=== PATIENT | female | born 1990 | race African-American/Black ===

== ENCOUNTER 2017-12-26 05:49 | Emergency (ER) | payer OTHER | END 2017-12-26 06:23 | disposition home or self-care (01) | LOC: ER 05:49 | DX: J06.9 Acute upper respiratory infection, unspecified (principal); R09.1 Pleurisy; Z88.1 Allergy status to other antibiotic agents | CPT/HCPCS: 99282 ==

== ENCOUNTER 2019-01-18 18:00 | Emergency (ER) | payer OTHER ==
[~2019-01-18] VITALS: Ht 157.5 cm; Wt 83.9 kg
[~2019-01-18 18:00] MED LIST: IBUP-1007 PO
[2019-01-18 18:05] VITALS: BP 157/98
[2019-01-18] MEDS ORDERED: IPRATRPIUM/ALBUTEROL 0.5/2.5MG 3 ML NEBU. NEB ONE (18:30)
[2019-01-18] MEDS ORDERED: PRED50TA PO (19:02)
[2019-01-18] MEDS ORDERED: PROM118S5 PO (19:02)
[2019-01-18] MEDS ORDERED: ALBU2.5V8 INH (19:02)
[2019-01-18] MEDS ORDERED: AZIT250T PO (19:02)
--- NOTE | 2019-01-18 19:03 | PHYS DOC ---
Past Medical History Past Medical History: Anemia (SHANELL GONSALEZ APRN) Past Surgical History: Tubal ligation, Other Additional Past Surgical Histo: d&c (SHANELL GONSALEZ APRN) Alcohol Use: None Drug Use: None (SHANELL GONSALEZ APRN) Adult General Chief Complaint Chief Complaint: COUGH HPI HPI Patient is a 29 year old female who presents with a severe cough �1 week. The patient also has a sore throat. She states that she thinks her throat is primarily sore due to the coughing. She denies a history of asthma. She states that she has felt short of breath. She denies fever or body aches. (SHANELL GONSALEZ APRN) Review of Systems Review of Systems Constitutional: Denies fever or chills [] Eyes: Denies change in visual acuity, redness, or eye pain [] HENT: See history of present illness Respiratory: See history of present illness Cardiovascular: No additional information not addressed in HPI [] GI: Denies abdominal pain, nausea, vomiting, bloody stools or diarrhea [] : Denies dysuria or hematuria [] Musculoskeletal: Denies back pain or joint pain [] Integument: Denies rash or skin lesions [] Neurologic: Denies headache, focal weakness or sensory changes [] Endocrine: Denies polyuria or polydipsia [] All other systems were reviewed and found to be within normal limits, except as documented in this note. (SHANELL GONSALEZ APRN) Current Medications Current Medications Current Medications Medications (Trade) Dose Ordered Sig/Elver Start Time Stop Time Status Last Admin Dose Admin Albuterol/ Ipratropium (Duoneb) 3 ml 1X ONCE 01/18/19 18:30 01/18/19 18:31 DC 01/18/19 18:35 3 ML (ODNINA BROWN MD) Allergies Allergies Allergies Coded Allergies Type Severity Reaction Last Updated Verified ciprofloxacin Allergy Severe Anaphylaxis 07/23/16 Yes (ONDINA BROWN MD) Physical Exam Physical Exam Constitutional: Well developed, well nourished, no acute distress, non-toxic appearance. [] HENT: Normocephalic, atraumatic, bilateral tympanic membranes normal, oropharynx moist, pharyngeal erythema with no oral exudates, nose normal. [] Eyes: PERRLA, EOMI, conjunctiva normal, no discharge. [] Neck: Normal range of motion, no tenderness, supple, no stridor. [] Cardiovascular:Heart rate regular rhythm, no murmur [] Lungs & Thorax: Bilateral breath sounds are decreased with rhonchi noted to the bases Abdomen: Bowel sounds normal, soft, no tenderness, no masses, no pulsatile masses. [] Skin: Warm, dry, no erythema, no rash. [] Back: No tenderness, no CVA tenderness. [] Extremities: No tenderness, no cyanosis, no clubbing, ROM intact, no edema. [] Neurologic: Alert and oriented X 3, normal motor function, normal sensory function, no focal deficits noted. [] Psychologic: Affect normal, judgement normal, mood normal. [] (SHANELL GONSALEZ APRN) Current Patient Data Vital Signs Vital Signs Date Time Temp Pulse Resp B/P (MAP) Pulse Ox O2 Delivery O2 Flow Rate FiO2 01/18/19 18:37 98 Room Air 01/18/19 18:05 99.0 85 18 157/98 (117) 99.0 (ONDINA BROWN MD) EKG EKG [] (SHANELL GONSALEZ APRN) Radiology/Procedures Radiology/Procedures [] (SHANELL GONSALEZ APRN) Course & Med Decision Making Course & Med Decision Making Pertinent Labs and Imaging studies reviewed. (See chart for details) []The patient was given a DuoNeb treatment in the emergency department with improvement to her lung sounds. (SHANELL GONSALEZ APRN) Course & Med Decision Making Represent Staff Physician Addendum: I was working in the ER during the course of this patient's visit. I was available for consultation as needed, but I was not directly involved in the care of this patient. (ONDINA RBOWN MD) Dragon Disclaimer Dragon Disclaimer This electronic medical record was generated, in whole or in part, using a voice recognition dictation system. (SHANELL GONSALEZ APRN) Departure Departure Impression: Primary Impression: Bronchitis Disposition: 01 HOME, SELF-CARE Condition: STABLE Referrals: NO PCP (PCP) Patient Instructions: Bronchitis Additional Instructions: Take the medications as directed. Do not drive or operate heavy machinery while taking the cough syrup. Increase fluids and rest. Follow-up with your primary care provider in 4 days if not improving or return to the emergency department if worsening. Scripts Albuterol Sulfate (Proair Hfa) 8.5 Gm Hfa.aer.ad 1 PUFF INH PRN Q6HRS PRN for SHORTNESS OF BREATH, #1 INHALER Prov: SHANELL GONSALEZ APRN 01/18/19 Prednisone (PREDNISONE) 50 Mg Tablet 1 TAB PO DAILY for bronchitis, #5 TAB Prov: SHANELL GONSALEZ APRN 01/18/19 Promethazine Hcl/Codeine (PROMETHAZINE-CODEINE SYRUP) 118 Ml Syrup 5 ML PO Q4-6HRS for cough, #120 ML Prov: SHANELL GONSALEZ APRN 01/18/19 Azithromycin (ZITHROMAX) 250 Mg Tablet 1 PKG PO UD for bronchitis, #1 PKG Prov: SHANELL GONSALEZ APRN 01/18/19 SHANELL GONSALEZ APRN Jan 18, 2019 19:03 ONDINA BROWN MD Jan 19, 2019 01:13
== END 2019-01-18 19:00 | disposition home or self-care (01) ==
LOC: ER 18:00
DX: J40 Bronchitis, not specified as acute or chronic (principal); Z86.2 Personal history of diseases of the blood and blood-forming organs and certain disorders involving the immune mechanism; Z88.1 Allergy status to other antibiotic agents
CPT/HCPCS: 94640; 99283; J7620

== ENCOUNTER 2019-07-23 20:59 | Emergency (ER) | payer MEDICAID, OTHER ==
[~2019-07-23] VITALS: Ht 162.6 cm; Wt 74.8 kg
[~2019-07-23 20:59] MED LIST changes: +ALBU2.5V8 INH; +AZIT250T PO; +PRED50TA PO; +PROM118S5 PO
[2019-07-23 21:33] VITALS: BP 141/81
[2019-07-23] MEDS ORDERED: AMOX500T PO (22:04)
[2019-07-23] MEDS ORDERED: METH4TAB2 PO (22:04)
--- NOTE | 2019-07-23 22:04 | PHYS DOC ---
Past Medical History Past Medical History: Anemia (AYDEE LOYA APRN) Past Surgical History: Tubal ligation, Other Additional Past Surgical Histo: d&c (AYDEE LOYA APRN) Alcohol Use: None Drug Use: None (AYDEE LOYA APRN) Adult General Chief Complaint Chief Complaint: SORE THROAT HPI HPI Patient is a 29 year old female who presents with fever, sore throat �2 days. Patient's fever and the ER is 102.7. Patient states she has not taken any medications for the fever pain. Patient states throat is sore but doesn't really hurt and she cannot give a number for her discomfort at this time. Patient denies nausea, vomiting, shortness of breath, cough, sneezing, nasal congestion, ear pain, chest pain, diarrhea. (AYDEE LOYA APRN) Review of Systems Review of Systems Constitutional: fever or chills [] HENT: nasal congestion or sore throat [] Respiratory: Denies cough or shortness of breath [] Cardiovascular: No additional information not addressed in HPI [] GI: Denies abdominal pain, nausea, vomiting, bloody stools or diarrhea [] : Denies dysuria or hematuria [] Neurologic: Denies headache, focal weakness or sensory changes [] All other systems were reviewed and found to be within normal limits, except as documented in this note. (AYDEE LOYA APRN) Current Medications Current Medications Current Medications Medications (Trade) Dose Ordered Sig/Elver Start Time Stop Time Status Last Admin Dose Admin Acetaminophen (Tylenol) 1,000 mg 1X ONCE 07/23/19 22:30 07/23/19 22:31 DC 07/23/19 22:26 1,000 MG (ONDINA BROWN MD) Allergies Allergies Allergies Coded Allergies Type Severity Reaction Last Updated Verified ciprofloxacin Allergy Severe Anaphylaxis 07/23/16 Yes (ONDINA BROWN MD) Physical Exam Physical Exam Constitutional: Well developed, well nourished, no acute distress, non-toxic appearance. [] HENT: Normocephalic, atraumatic, bilateral external ears normal, oropharynx moist, no oral exudates, nose normal.Throat red, 1+ edema with exudates[] Neck: Normal range of motion, no tenderness, supple, no stridor. [] Cardiovascular:Heart rate regular rhythm, no murmur [] Lungs & Thorax: Bilateral breath sounds clear to auscultation [] Abdomen: Bowel sounds normal, soft, no tenderness, no masses, no pulsatile masses. [] Skin: Warm, dry, no erythema, no rash. [] Neurologic: Alert and oriented X 3, normal motor function, normal sensory function, no focal deficits noted. [] Psychologic: Affect normal, judgement normal, mood normal. [] (AYDEE LOYA APRN) Current Patient Data Vital Signs Vital Signs Date Time Temp Pulse Resp B/P (MAP) Pulse Ox O2 Delivery O2 Flow Rate FiO2 07/23/19 21:33 102.7 97 20 141/81 (101) 100 Room Air 102.7 (ONDINA BROWN MD) EKG EKG [] (AYDEE LOYA APRN) Radiology/Procedures Radiology/Procedures [] (AYDEE LOYA APRN) Course & Med Decision Making Course & Med Decision Making Patient is a 29 year old female who presents with fever, sore throat �2 days. P atient's fever and the ER is 102.7. Patient states she has not taken any medications for the fever pain. Patient states throat is sore but doesn't really hurt and she cannot give a number for her discomfort at this time. Patient denies nausea, vomiting, shortness of breath, cough, sneezing, nasal congestion, ear pain, chest pain, diarrhea. Alert and oriented. Skin is pink warm and dry. Ambulatory with a steady gait. PERRLA. Lungs are clear to auscultation all lobes. Throat is reddened and tonsils are 1+ swollen with white patches. Bilateral ear tympanic is pearly white. Rapid strep is negative sent for culture. Patient speaks in full clear sentences. Mucous membranes moist. Patient is eating and drinking appropriately. Patient is given Tylenol in the ED. I will treat her for strep especially since she has a fever and I do see white patches on her tonsils. Patient is stable and in no distress. Patient follow up with her primary care and drink plenty of fluids. (AYDEE LOYA APRN) Course & Med Decision Making Staff Physician Addendum: I was working in the ER during the course of this patient's visit. I was available for consultation as needed, but I was not directly involved in the care of this patient. (ONDINA BROWN MD) Dragon Disclaimer Dragon Disclaimer This electronic medical record was generated, in whole or in part, using a voice recognition dictation system. (AYDEE LOYA APRN) Departure Departure Impression: Primary Impression: Sore throat Additional Impression: Fever Disposition: 01 HOME, SELF-CARE Condition: STABLE Referrals: NO PCP (PCP) Patient Instructions: Strep Throat Additional Instructions: Drink plenty of fluids. Take Tylenol or ibuprofen for fever or pain. Right gargling salt water. Take medication as prescribed. Follow up with primary care provider. Scripts Methylprednisolone (MEDROL) 4 Mg Tab.ds.pk 1 PKG PO UD, #1 PKG Prov: AYDEE LOYA APRN 07/23/19 Amoxicillin (AMOXICILLIN) 500 Mg Tablet 1 TAB PO BID, #20 TAB Prov: AYDEE LOYA APRN 07/23/19 Problem Qualifiers Additional Impression: Fever Fever type: unspecified Qualified Codes: R50.9 - Fever, unspecified AYDEE LOYA APRN Jul 23, 2019 22:04 ONDINA BROWN MD Jul 24, 2019 05:36
[2019-07-23] MEDS ORDERED: ACETAMINOPHEN 500 MG TABLET PO ONE (22:30)
== END 2019-07-23 22:30 | disposition home or self-care (01) ==
LOC: ER 20:59
DX: J02.9 Acute pharyngitis, unspecified (principal); Z98.51 Tubal ligation status; Z88.1 Allergy status to other antibiotic agents
CPT/HCPCS: 87070; 87880; 99283

== ENCOUNTER 2019-08-12 12:34 | Emergency (ER) | payer MEDICAID ==
[~2019-08-12] VITALS: Ht 157.5 cm; Wt 81.6 kg
[~2019-08-12 12:34] MED LIST changes: +AMOX500T PO; +METH4TAB2 PO
[2019-08-12 12:48] VITALS: BP 141/85
--- NOTE | 2019-08-12 13:36 | PHYS DOC ---
Past Medical History Past Medical History: Anemia Additional Past Medical Histor: MULTIPLE BLOOD TRANSFUSIONS PER PT. Past Surgical History: Tubal ligation, Other Additional Past Surgical Histo: d&c Additional Information: 2/day - black and milds Alcohol Use: Occasionally Drug Use: None Adult General Chief Complaint Chief Complaint: OTHER COMPLAINTS HPI HPI Patient is a 29 year old female that presents to the ER stating that she has missed her period. She states her last menstrual period was June 16. She states that she's had a tubal ligation is not on any control. Taken numerous home tests which were all negative. Denies any other complaints. Review of Systems Review of Systems Constitutional: Denies fever or chills [] Eyes: Denies change in visual acuity, redness, or eye pain [] HENT: Denies nasal congestion or sore throat [] Respiratory: Denies cough or shortness of breath [] Cardiovascular: No additional information not addressed in HPI [] GI: Denies abdominal pain, nausea, vomiting, bloody stools or diarrhea [] : Denies dysuria or hematuria [] Musculoskeletal: Denies back pain or joint pain [] Integument: Denies rash or skin lesions [] Neurologic: Denies headache, focal weakness or sensory changes [] Endocrine: Denies polyuria or polydipsia [] Complete systems were reviewed and found to be within normal limits, except as documented in this note. Allergies Allergies Allergies Coded Allergies Type Severity Reaction Last Updated Verified ciprofloxacin Allergy Severe Anaphylaxis 07/23/16 Yes Physical Exam Physical Exam Constitutional: Well developed, well nourished, no acute distress, non-toxic appearance. [] HENT: Normocephalic, atraumatic, bilateral external ears normal, oropharynx moist, no oral exudates, nose normal. [] Eyes: PERRLA, EOMI, conjunctiva normal, no discharge. [] Neck: Normal range of motion, no tenderness, supple, no stridor. [] Skin: Warm, dry, no erythema, no rash. [] Back: No tenderness, no CVA tenderness. [] Extremities: No tenderness, no cyanosis, no clubbing, ROM intact, no edema. [] Neurologic: Alert and oriented X 3, normal motor function, normal sensory function, no focal deficits noted. [] Psychologic: Affect normal, judgement normal, mood normal. [] Current Patient Data Vital Signs Vital Signs Date Time Temp Pulse Resp B/P (MAP) Pulse Ox O2 Delivery O2 Flow Rate FiO2 08/12/19 12:48 98.5 69 19 141/85 (103) 100 Room Air 98.5 EKG EKG [] Radiology/Procedures Radiology/Procedures [] Course & Med Decision Making Course & Med Decision Making Pertinent Labs and Imaging studies reviewed. (See chart for details) Discussed with patient that if her home test is negative she is unlikely to be . Will repeat test and refer to OB. test is negative. Will d/c home. Patient had medical screening exam performed and is not having signs of medical emergency at this time. Dragon Disclaimer [employer] Disclaimer This electronic medical record was generated, in whole or in part, using a voice recognition dictation system. Departure Departure Impression: Primary Impression: Encounter for medical screening examination Disposition: HOME, SELF-CARE Condition: STABLE Referrals: NO PCP (PCP) FRANCO BERMUDEZ Jr, MD Patient Instructions: Medical Screening Exam Additional Instructions: Thank you for visiting [facility]. We appreciate you trusting us with your care. If any additional problems come up don't hesitate to return to visit us. Please follow up with your primary care provider so they can plan additional care if needed and know about the problem that you had. If symptoms worsen come back to the Emergency Department. Any concerning symptoms that start such as chest pain, shortness of air, weakness or numbness on one side of the body, running high fevers or any other concerning symptoms return to the ER. SALINA JUDGE APRN Aug 12, 2019 13:36
== END 2019-08-12 13:44 | disposition home or self-care (01) ==
LOC: ER 12:34
DX: Z32.02 Encounter for pregnancy test, result negative (principal); Z98.51 Tubal ligation status; Z88.1 Allergy status to other antibiotic agents
CPT/HCPCS: 81025; 99282

== ENCOUNTER 2019-08-23 17:55 | Emergency (ER) | payer MEDICAID ==
[~2019-08-23] VITALS: Ht 157.5 cm; Wt 81.6 kg
[2019-08-23 18:16] VITALS: BP 137/90
[2019-08-23 18:23] LABS: BILIRUBIN,URINE NEGATIVE (NEG); CLARITY,URINE TURBID; NITRITE,URINE NEGATIVE (NEG); PROTEIN,URINE >=300 mg/dL (NEG-TRACE)
--- NOTE | 2019-08-23 18:28 | PHYS DOC ---
Past Medical History Past Medical History: Anemia, Kidney Stone Additional Past Medical Histor: MULTIPLE BLOOD TRANSFUSIONS PER PT. Past Surgical History: Tubal ligation, Other Additional Past Surgical Histo: d&c Alcohol Use: Occasionally Drug Use: None Adult General Chief Complaint Chief Complaint: PAIN ON URINATION [facility] HPI Patient is a 29 year old [female] who presents with [urinary frequency, urgency. States she had been passing some kidney stones at home for the past 2 days, reports she has noticed some increased urinary frequency since that time, reports she feels like she is unable to completely empty her bladder, when she urinates she should feel like she has a full bladder. Does report she has had bladder infections in the past, this feels very similar. Denies any vaginal bleeding, vaginal discharge, concerns for STI. Does report she has noticed some blood in her urine, which he believes is from the infection and as well as from her recent kidney stones. Reports she believes she has passed all the kidney stones she had. Denies fever, denies new back pain, reports she has chronic lower back pain, this is no different today than she normally is. She has tried some ibuprofen, which has helped a little bit] Review of Systems Review of Systems Constitutional: Denies fever or chills [] Eyes: Denies change in visual acuity, redness, or eye pain [] HENT: Denies nasal congestion or sore throat [] Respiratory: Denies cough or shortness of breath [] Cardiovascular: No additional information not addressed in HPI [] GI: Denies abdominal pain, nausea, vomiting, bloody stools or diarrhea [] : Reports dysuria, hematuria, urinary frequency, bladder emptying, burning urination [] Musculoskeletal: Denies back pain different from what she normally has each day or joint pain [] Integument: Denies rash or skin lesions [] Neurologic: Denies headache, focal weakness or sensory changes [] Endocrine: Denies polyuria or polydipsia [] All other systems were reviewed and found to be within normal limits, except as documented in this note. Allergies Allergies Allergies Coded Allergies Type Severity Reaction Last Updated Verified ciprofloxacin Allergy Severe Anaphylaxis 07/23/16 Yes Physical Exam Physical Exam Constitutional: Well developed, well nourished, no acute distress, non-toxic appearance. [] Cardiovascular:Heart rate regular rhythm, no murmur [] Lungs & Thorax: Bilateral breath sounds clear to auscultation [] Abdomen: Bowel sounds normal, soft, no tenderness, no masses, no pulsatile masses. [] Skin: Warm, dry, no erythema, no rash. [] Back: No tenderness, no CVA tenderness. [] Neurologic: Alert and oriented X 3, normal motor function, normal sensory function, no focal deficits noted. [] Psychologic: Affect normal, judgement normal, mood normal. [] Current Patient Data Vital Signs Vital Signs Date Time Temp Pulse Resp B/P (MAP) Pulse Ox O2 Delivery O2 Flow Rate FiO2 08/23/19 18:16 98.8 68 18 137/90 (106) 100 Room Air 98.8 Lab Values Laboratory Tests Test 08/23/19 18:07 Urine Collection Type Unknown Urine Color Yellow Urine Clarity Turbid Urine pH 6.0 Urine Specific [place] 1.020 Urine Protein >=300 mg/dL (NEG-TRACE) Urine Glucose (UA) Negative mg/dL (NEG) Urine Ketones (Stick) Trace mg/dL (NEG) Urine Blood Large (NEG) Urine Nitrite Negative (NEG) Urine Bilirubin Negative (NEG) Urine Urobilinogen Dipstick 1.0 mg/dL (0.2 mg/dL) Urine Leukocyte Esterase Large (NEG) Urine RBC Tntc /HPF (0-2) Urine WBC Tntc /HPF (0-4) Urine Squamous Epithelial Cells Mod /LPF Urine Bacteria Many /HPF (0-FEW) Urine Mucus Marked /LPF EKG EKG [] Radiology/Procedures Radiology/Procedures [] Course & Med Decision Making Course & Med Decision Making Pertinent Labs and Imaging studies reviewed. (See chart for details) [Discussed lab findings with patient, discussed use of antibiotics for UTI.. Patient agreeable with plan, with no further questions or concerns] Dragon Disclaimer Dragon Disclaimer This electronic medical record was generated, in whole or in part, using a voice recognition dictation system. Departure Departure Impression: Primary Impression: Urinary tract infection Disposition: 01 HOME, SELF-CARE Condition: GOOD Referrals: NO PCP (PCP) Patient Instructions: Urinary Tract Infection Additional Instructions: As we discussed, take the antibiotic as prescribed. It will be cultured and if it is found to be resistant again, they will call you similar to last time. Make sure you're drinking plenty of water. Follow up with your primary care provider as needed. You may take Tylenol or ibuprofen for discomfort. Scripts Cephalexin (CEPHALEXIN) 500 Mg Capsule 1 CAP PO BID for 10 Days, #20 CAP Prov: MIGUEL VÁZQUEZ APRN 08/23/19 Problem Qualifiers Primary Impression: Urinary tract infection Urinary tract infection type: acute cystitis Hematuria presence: with hematuria Qualified Codes: N30.01 - Acute cystitis with hematuria MIGUEL VÁZQUEZ APRN Aug 23, 2019 18:28
[2019-08-23 18:31] LABS: BACTERIA,URINE MANY /HPF (0-FEW); COLOR,URINE YELLOW; RBC,URINE TNTC /HPF (0-2); SQUAMOUS EPITHELIAL CELL,UR MOD /LPF; WBC,URINE TNTC /HPF (0-4)
[2019-08-23 18:40] LABS: U PREG PATIENT NEGATIVE (NEG)
[2019-08-23] MEDS ORDERED: CEPH500C PO (18:46)
== END 2019-08-23 18:59 | disposition home or self-care (01) ==
LOC: ER 17:55
DX: N30.01 Acute cystitis with hematuria (principal); Z87.442 Personal history of urinary calculi; Z98.51 Tubal ligation status; Z88.1 Allergy status to other antibiotic agents
CPT/HCPCS: 81001; 81025; 87086; 99284

== ENCOUNTER 2019-09-21 13:55 | Inpatient (IN) | payer MEDICAID ==
[~2019-09-21] VITALS: Ht 157.5 cm; Wt 76.8 kg
[~2019-09-21 13:55] MED LIST changes: +CEPH500C PO
[2019-09-21 15:59] LABS: BASO # 0.1 x10^3/uL (0.0-0.2); BASO % 1 % (0-3); EOS # 0.2 x10^3/uL (0.0-0.7); EOS % 2 % (0-3); HEMATOCRIT 26.1 % (36.0-47.0); HEMOGLOBIN 7.6 g/dL (12.0-15.5); LYMPH # 2.1 x10^3/uL (1.0-4.8); LYMPH % 22 % (24-48); MEAN CORPUSCULAR HEMOGLOBIN 18 pg (25-35); MEAN CORPUSCULAR HGB CONC 29 g/dL (31-37); MEAN CORPUSCULAR VOLUME 63 fL (79-100); MONO # 0.5 x10^3/uL (0.0-1.1); MONO % 5 % (0-9); NEUT # 6.7 x10^3/uL (1.8-7.7); NEUT % 70 % (31-73); PLATELET COUNT 339 x10^3/uL (140-400); RED BLOOD COUNT 4.18 x10^6/uL (3.50-5.40); RED CELL DISTRIBUTION WIDTH 17.4 % (11.5-14.5); WHITE BLOOD COUNT 9.5 x10^3/uL (4.0-11.0)
[2019-09-21 16:01] LABS: BILIRUBIN,URINE NEGATIVE (NEG); CLARITY,URINE CLEAR; COLOR,URINE YELLOW; NITRITE,URINE NEGATIVE (NEG); PH,URINE 5.5; PROTEIN,URINE NEGATIVE (NEG-TRACE); UROBILINOGEN,URINE 0.2 mg/dL (0.2 mg/dL)
[2019-09-21 16:04] LABS: BACTERIA,URINE FEW /HPF (0-FEW); RBC,URINE 0 /HPF (0-2); SQUAMOUS EPITHELIAL CELL,UR MOD /LPF
[2019-09-21 16:07] LABS: BARBITURATES NEG (NEG); BENZODIAZEPINES NEG (NEG); CANNABINOIDS POS (NEG); COCAINE NEG (NEG); METHADONE NEG (NEG); OPIATES NEG (NEG); PHENCYCLIDINE NEG (NEG)
--- NOTE | 2019-09-21 16:11 | PHYS DOC ---
Past Medical History Past Medical History: Anemia, Kidney Stone Additional Past Medical Histor: MULTIPLE BLOOD TRANSFUSIONS PER PT. (JENNIFER HADDAD APRN) Past Surgical History: Tubal ligation, Other Additional Past Surgical Histo: d&c (JENNIFER HADDAD APRN) Smoking: Less than 1pk/day Alcohol Use: Occasionally Drug Use: None (JENNIFER HADDAD APRN) Attending Signature I have participated in the care of this patient and I have reviewed and agree with all pertinent clinical information above including history, exam, and recommendations. (ENRIQUE JOSEPH MD) Adult General Chief Complaint Chief Complaint: SYNCOPE HPI HPI Patient is a 29 year old AA female, accompanied by her 2 children, who presents to the emergency Department today with complaints of a syncopal episode yesterday. Patient states that she needs to have her hemoglobin level checked. She states she was sitting at the table in her home yesterday afternoon when she passed out for approximately 10-12 hours. Patient denies hitting her head, nausea, vomiting, vision changes, or dizziness prior to passing out. She does not remember passing out. Patient reports a history of anemia and states she has been taking iron since she was a minor but it does not help and they have not figured out exactly what type of anemia she has yet. She reports her last menstrual cycle was on September [id number]. She denies any increased menstrual flow, she actually describes the bleeding during this cycle as being light. She currently denies any numbness, tingling, weakness, chest pain, shortness breath, palpitations, headache, vision changes, nausea, vomiting, abdominal pain, dysuria, hematuria, body aches, or rash. Patient states she did have diarrhea 4 days ago, she denies any diarrhea since then and states there was not any blood in her diarrhea. She does report increased urinary frequency recently with non specific low back pain. Currently, she denies any pain. She states that with position changes for the last 2 days she has felt very lightheaded. She denies any sensation of room spinning or dizziness. All other ROS is neg unless otherwise noted in HPI. (JENNIFER HADDAD APRN) Review of Systems Review of Systems See Above (JENNIFER HADDAD APRN) Current Medications Current Medications Current Medications Medications (Trade) Dose Ordered Sig/Elver Start Time Stop Time Status Last Admin Dose Admin Potassium Chloride (Klor-Con) 40 meq 1X ONCE 09/21/19 16:45 09/21/19 16:46 DC 09/21/19 17:02 40 MEQ (ENRIQUE JOSEPH MD) Allergies Allergies Allergies Coded Allergies Type Severity Reaction Last Updated Verified ciprofloxacin Allergy Severe Anaphylaxis 07/23/16 Yes (ENRIQUE JOSEPH MD) Physical Exam Physical Exam See Above Constitutional: Well developed, well nourished, no acute distress, non-toxic appearance. [] HENT: Normocephalic, atraumatic, bilateral external ears normal, oropharynx moist, no oral exudates, nose normal. [] Eyes: PERRLA, EOMI, conjunctiva pale, no discharge. [] Neck: Normal range of motion, no stridor. [] Cardiovascular:Heart rate regular rhythm, no murmur [] Lungs & Thorax: Bilateral breath sounds clear to auscultation [] Abdomen: Bowel sounds normal, soft, no tenderness, no masses, no pulsatile masses. [] Skin: Warm, dry, no erythema, no rash; pale mucous membranes [] Back: No tenderness, no CVA tenderness. [] Extremities: No cyanosis, no clubbing, ROM intact, no edema. [] Neurologic: Alert and oriented X 3, normal motor function, normal sensory function, no focal deficits noted. [] Psychologic: Affect normal, judgement normal, mood normal. [] (JENNIFER HADDAD APRN) Current Patient Data Vital Signs Vital Signs Date Time Temp Pulse Resp B/P (MAP) Pulse Ox O2 Delivery O2 Flow Rate FiO2 09/21/19 16:20 72 12 124/85 (98) 100 Room Air 09/21/19 15:06 98.7 98.7 (ENRIQUE JOSEPH MD) Lab Values Laboratory Tests Test 09/21/19 15:16 09/21/19 15:24 White Blood Count 9.5 x10^3/uL (4.0-11.0) Red Blood Count 4.18 x10^6/uL (3.50-5.40) Hemoglobin 7.6 g/dL (12.0-15.5) L Hematocrit 26.1 % (36.0-47.0) L Mean Corpuscular Volume 63 fL (79-100) L Mean Corpuscular Hemoglobin 18 pg (25-35) L Mean Corpuscular Hemoglobin Concent 29 g/dL (31-37) L Red Cell Distribution Width 17.4 % (11.5-14.5) H Platelet Count 339 x10^3/uL (140-400) Neutrophils (%) (Auto) 70 % (31-73) Lymphocytes (%) (Auto) 22 % (24-48) L Monocytes (%) (Auto) 5 % (0-9) Eosinophils (%) (Auto) 2 % (0-3) Basophils (%) (Auto) 1 % (0-3) Neutrophils # (Auto) 6.7 x10^3/uL (1.8-7.7) Lymphocytes # (Auto) 2.1 x10^3/uL (1.0-4.8) Monocytes # (Auto) 0.5 x10^3/uL (0.0-1.1) Eosinophils # (Auto) 0.2 x10^3/uL (0.0-0.7) Basophils # (Auto) 0.1 x10^3/uL (0.0-0.2) Platelet Estimate Adequate (ADEQUATE) Polychromasia Slight Hypochromasia Marked Anisocytosis Slight Microcytosis Marked Sodium Level 142 mmol/L (136-145) Potassium Level 3.3 mmol/L (3.5-5.1) L Chloride Level 105 mmol/L (98-107) Carbon Dioxide Level 27 mmol/L (21-32) Anion Gap 10 (6-14) Blood Urea Nitrogen 6 mg/dL (7-20) L Creatinine 0.7 mg/dL (0.6-1.0) Estimated GFR (Cockcroft-Gault) 121.5 BUN/Creatinine Ratio 9 (6-20) Glucose Level 77 mg/dL (70-99) Calcium Level 8.8 mg/dL (8.5-10.1) Magnesium Level 1.9 mg/dL (1.8-2.4) Iron Level 9 ug/dL (50-170) L Total Iron Binding Capacity 458 ug/dL (250-450) H Iron Saturation 2 % (15-34) L Total Bilirubin 0.4 mg/dL (0.2-1.0) Aspartate Amino Transferase (AST) 12 U/L (15-37) L Alanine Aminotransferase (ALT) 12 U/L (14-59) L Alkaline Phosphatase 47 U/L (46-116) Creatine Kinase 75 U/L (26-192) Creatine Kinase MB (Mass) < 0.5 ng/mL (0.0-3.6) Creatine Kinase MB Relative Index % (0-4) Troponin I Quantitative < 0.017 ng/mL (0.000-0.055) Total Protein 8.0 g/dL (6.4-8.2) Albumin 3.7 g/dL (3.4-5.0) Albumin/Globulin Ratio 0.9 (1.0-1.7) L Urine Collection Type Unknown Urine Color Yellow Urine Clarity Clear Urine pH 5.5 Urine Specific [employer] 1.020 Urine Protein Negative mg/dL (NEG-TRACE) Urine Glucose (UA) Negative mg/dL (NEG) Urine Ketones (Stick) Negative mg/dL (NEG) Urine Blood Negative (NEG) Urine Nitrite Negative (NEG) Urine Bilirubin Negative (NEG) Urine Urobilinogen Dipstick 0.2 mg/dL (0.2 mg/dL) Urine Leukocyte Esterase Negative (NEG) Urine RBC 0 /HPF (0-2) Urine WBC 1-4 /HPF (0-4) Urine Squamous Epithelial Cells Mod /LPF Urine Bacteria Few /HPF (0-FEW) Urine Mucus Mod /LPF Urine Test Negative (NEG) Urine Opiates Screen Neg (NEG) Urine Methadone Screen Neg (NEG) Urine Barbiturates Neg (NEG) Urine Phencyclidine Screen Neg (NEG) Urine Amphetamine/Methamphetamine Neg (NEG) Urine Benzodiazepines Screen Neg (NEG) Urine Cocaine Screen Neg (NEG) Urine Cannabinoids Screen Pos (NEG) Urine Ethyl Alcohol Neg (NEG) Laboratory Tests 09/21/19 15:16 Laboratory Tests 09/21/19 15:16 (ENRIQUE JOSEPH MD) Lab Values Laboratory Tests Test 09/21/19 15:16 09/21/19 15:24 White Blood Count 9.5 x10^3/uL (4.0-11.0) Red Blood Count 4.18 x10^6/uL (3.50-5.40) Hemoglobin 7.6 g/dL (12.0-15.5) L Hematocrit 26.1 % (36.0-47.0) L Mean Corpuscular Volume 63 fL (79-100) L Mean Corpuscular Hemoglobin 18 pg (25-35) L Mean Corpuscular Hemoglobin Concent 29 g/dL (31-37) L Red Cell Distribution Width 17.4 % (11.5-14.5) H Platelet Count 339 x10^3/uL (140-400) Neutrophils (%) (Auto) 70 % (31-73) Lymphocytes (%) (Auto) 22 % (24-48) L Monocytes (%) (Auto) 5 % (0-9) Eosinophils (%) (Auto) 2 % (0-3) Basophils (%) (Auto) 1 % (0-3) Neutrophils # (Auto) 6.7 x10^3/uL (1.8-7.7) Lymphocytes # (Auto) 2.1 x10^3/uL (1.0-4.8) Monocytes # (Auto) 0.5 x10^3/uL (0.0-1.1) Eosinophils # (Auto) 0.2 x10^3/uL (0.0-0.7) Basophils # (Auto) 0.1 x10^3/uL (0.0-0.2) Platelet Estimate Pending Sodium Level 142 mmol/L (136-145) Potassium Level 3.3 mmol/L (3.5-5.1) L Chloride Level 105 mmol/L (98-107) Carbon Dioxide Level 27 mmol/L (21-32) Anion Gap 10 (6-14) Blood Urea Nitrogen 6 mg/dL (7-20) L Creatinine 0.7 mg/dL (0.6-1.0) Estimated GFR (Cockcroft-Gault) 121.5 BUN/Creatinine Ratio 9 (6-20) Glucose Level 77 mg/dL (70-99) Calcium Level 8.8 mg/dL (8.5-10.1) Magnesium Level 1.9 mg/dL (1.8-2.4) Total Bilirubin 0.4 mg/dL (0.2-1.0) Aspartate Amino Transferase (AST) 12 U/L (15-37) L Alanine Aminotransferase (ALT) 12 U/L (14-59) L Alkaline Phosphatase 47 U/L (46-116) Creatine Kinase 75 U/L (26-192) Creatine Kinase MB (Mass) < 0.5 ng/mL (0.0-3.6) Creatine Kinase MB Relative Index % (0-4) Troponin I Quantitative < 0.017 ng/mL (0.000-0.055) Total Protein 8.0 g/dL (6.4-8.2) Albumin 3.7 g/dL (3.4-5.0) Albumin/Globulin Ratio 0.9 (1.0-1.7) L Urine Collection Type Unknown Urine Color Yellow Urine Clarity Clear Urine pH 5.5 Urine Specific [employer] 1.020 Urine Protein Negative mg/dL (NEG-TRACE) Urine Glucose (UA) Negative mg/dL (NEG) Urine Ketones (Stick) Negative mg/dL (NEG) Urine Blood Negative (NEG) Urine Nitrite Negative (NEG) Urine Bilirubin Negative (NEG) Urine Urobilinogen Dipstick 0.2 mg/dL (0.2 mg/dL) Urine Leukocyte Esterase Negative (NEG) Urine RBC 0 /HPF (0-2) Urine WBC 1-4 /HPF (0-4) Urine Squamous Epithelial Cells Mod /LPF Urine Bacteria Few /HPF (0-FEW) Urine Mucus Mod /LPF Urine Test Negative (NEG) Urine Opiates Screen Neg (NEG) Urine Methadone Screen Neg (NEG) Urine Barbiturates Neg (NEG) Urine Phencyclidine Screen Neg (NEG) Urine Amphetamine/Methamphetamine Neg (NEG) Urine Benzodiazepines Screen Neg (NEG) Urine Cocaine Screen Neg (NEG) Urine Cannabinoids Screen Pos (NEG) Urine Ethyl Alcohol Neg (NEG) Laboratory Tests 09/21/19 15:16 Laboratory Tests 09/21/19 15:16 (JENNIFER HADDAD APRN) EKG EKG 1610- SR rate 60 NO STEMI read by Dr. Joseph[] (JENNIFER HADDAD APRN) Radiology/Procedures Radiology/Procedures [] (JENNIFER HADDAD APRN) Course & Med Decision Making Course & Med Decision Making Pertinent Labs and Imaging studies reviewed. (See chart for details) DX: Anemia, hypokalemia, syncope CBC: Hgb 7.6, Hct 26.1; CMP: K 3.3; UA unremarkable; UDS positive for marijuana EKG no acute findings. 1710- Spoke with Dr. Mckenzie who is the admitting physician, and care was assumed following discussion of patient. Patient's vital signs stable. Patient remains afebrile, appears nontoxic, respirations even and unlabored. Patient will be admitted to the med/surg floor. Patient's case and plan of care also discussed with Dr. Joseph (JENNIFER HADDAD APRN) Dilip Disclaimer Dragon Disclaimer This electronic medical record was generated, in whole or in part, using a voice recognition dictation system. (JENNIFER HADDAD APRN) Departure Departure Impression: Primary Impression: Anemia Additional Impressions: Hypokalemia Syncope Disposition: ADMITTED INPATIENT Admitting Physician: YOLANDA Hope) (JENNIFER HADDAD APRN) Condition: STABLE Referrals: NO PCP (PCP) Problem Qualifiers Primary Impression: Anemia Anemia type: unspecified type Qualified Codes: D64.9 - Anemia, unspecified Additional Impressions: Syncope Syncope type: unspecified Qualified Codes: R55 - Syncope and collapse JENNIFER HADDAD APRN Sep 21, 2019 16:11 ENRIQUE JOSEPH MD Sep 24, 2019 06:16
[2019-09-21 16:12] LABS: AMPHETAMINE/METHAMPHETAMINE NEG (NEG)
[2019-09-21 16:16] LABS: U PREG PATIENT NEGATIVE (NEG)
[2019-09-21 16:23] LABS: CALCIUM 8.8 mg/dL (8.5-10.1); CREATININE 0.7 mg/dL (0.6-1.0); GFR 121.5; POTASSIUM 3.3 mmol/L (3.5-5.1)
[2019-09-21 16:28] LABS: ALBUMIN 3.7 g/dL (3.4-5.0); ALBUMIN/GLOBULIN RATIO 0.9 (1.0-1.7); MAGNESIUM 1.9 mg/dL (1.8-2.4); TOTAL BILIRUBIN 0.4 mg/dL (0.2-1.0)
[2019-09-21 16:33] LABS: CREATINE KINASE 75 U/L (26-192)
[2019-09-21] MEDS ORDERED: POTASSIUM CHLORIDE 20 MEQ TABLET.ER. PO ONE (16:45)
--- NOTE | 2019-09-21 17:44 | PDOC1 ---
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 Pt has had blood transfusions in past. Pt never did ff up with heme onc, She also has menorrhagia, 7 days, heavy, big tampons plus pads, but the last 2 mos has been ok. NOT having her period now, never was placed on OCP to control periods. Syncope, no sz, no aura, VS good. Hgb 7.,6 with MCv 67. Normal platelets, Mildly low K 3,3, got PO 40 kcl x 1 at ER Past Medical History Heme/Onc: Anemia NOS Past Surgical History Past Surgical History: Other (OB deliveries - lots of kids in room (toddler ages)) Family History Family History: No Significant Social History Smoke: No ALCOHOL: none Drugs: None Current Problem List Problem List Problems Medical Problems: (1) Anemia Status: Acute (2) Hypokalemia Status: Acute (3) Syncope Status: Acute Current Medications Current Medications Current Medications Potassium Chloride (Klor-Con) 40 meq 1X ONCE PO Last administered on 09/21/19at 17:02; Start 09/21/19 at 16:45; Stop 09/21/19 at 16:46; Status DC Active Scripts Active Cephalexin 500 Mg Capsule 1 Cap PO BID 10 Days Medrol (Methylprednisolone) 4 Mg Tab.ds.pk 1 Pkg PO UD Amoxicillin 500 Mg Tablet 1 Tab PO BID Proair Hfa (Albuterol Sulfate) 8.5 Gm Hfa.aer.ad 1 Puff INH PRN Q6HRS PRN Prednisone 50 Mg Tablet 1 Tab PO DAILY Promethazine-Codeine Syrup (Promethazine Hcl/Codeine) 118 Ml Syrup 5 Ml PO Q4- 6HRS Zithromax (Azithromycin) 250 Mg Tablet 1 Pkg PO UD Ibuprofen 600 Mg Tablet 600 Mg PO PRN Q6HRS PRN Allergies Allergies: Coded Allergies: ciprofloxacin (Verified Allergy, Severe, Anaphylaxis, 07/23/16) ROS Review of System as per HPI, all else 14 pt neg Physical Exam General: No acute distress HEENT: Atraumatic, PERRLA, EOMI, Other ([pale palpebral conjunctivae) Lungs: Clear to auscultation, Normal air movement Heart: S1S2, RRR, no thrills, no rubs, no gallops, no murmurs Cardiovascular: S1, S2 Breasts: Normal, Rt breast nml w/o mass, Lt breast nml w/o mass, Nipples normal Abdomen: Normal bowel sounds, Soft, No tenderness, No hepatosplenomegaly, No masses Rectal Exam: not examined PELVIC: Nml ext genitalia Extremities: No clubbing, No cyanosis, No edema, Normal pulses, No tenderness/swelling Skin: No rashes, No breakdown, No significant lesion Neuro: Normal gait, Normal speech, Strength at 5/5 X4 ext, Normal tone, Sensation intact, Cranial nerves 3-12 NL, Reflexes 2+ Psych/Mental Status: Mental status NL, Mood NL Vitals Vitals Vital Signs Date Time Temp Pulse Resp B/P (MAP) Pulse Ox O2 Delivery O2 Flow Rate FiO2 09/21/19 15:06 98.7 63 12 123/77 (92) 96 Room Air 98.7 Labs Labs Laboratory Tests Test 09/21/19 15:16 09/21/19 15:24 White Blood Count 9.5 x10^3/uL (4.0-11.0) Red Blood Count 4.18 x10^6/uL (3.50-5.40) Hemoglobin 7.6 g/dL (12.0-15.5) Hematocrit 26.1 % (36.0-47.0) Mean Corpuscular Volume 63 fL (79-100) Mean Corpuscular Hemoglobin 18 pg (25-35) Mean Corpuscular Hemoglobin Concent 29 g/dL (31-37) Red Cell Distribution Width 17.4 % (11.5-14.5) Platelet Count 339 x10^3/uL (140-400) Neutrophils (%) (Auto) 70 % (31-73) Lymphocytes (%) (Auto) 22 % (24-48) Monocytes (%) (Auto) 5 % (0-9) Eosinophils (%) (Auto) 2 % (0-3) Basophils (%) (Auto) 1 % (0-3) Neutrophils # (Auto) 6.7 x10^3/uL (1.8-7.7) Lymphocytes # (Auto) 2.1 x10^3/uL (1.0-4.8) Monocytes # (Auto) 0.5 x10^3/uL (0.0-1.1) Eosinophils # (Auto) 0.2 x10^3/uL (0.0-0.7) Basophils # (Auto) 0.1 x10^3/uL (0.0-0.2) Sodium Level 142 mmol/L (136-145) Potassium Level 3.3 mmol/L (3.5-5.1) Chloride Level 105 mmol/L (98-107) Carbon Dioxide Level 27 mmol/L (21-32) Anion Gap 10 (6-14) Blood Urea Nitrogen 6 mg/dL (7-20) Creatinine 0.7 mg/dL (0.6-1.0) Estimated GFR (Cockcroft-Gault) 121.5 BUN/Creatinine Ratio 9 (6-20) Glucose Level 77 mg/dL (70-99) Calcium Level 8.8 mg/dL (8.5-10.1) Magnesium Level 1.9 mg/dL (1.8-2.4) Total Bilirubin 0.4 mg/dL (0.2-1.0) Aspartate Amino Transf (AST/SGOT) 12 U/L (15-37) Alanine Aminotransferase (ALT/SGPT) 12 U/L (14-59) Alkaline Phosphatase 47 U/L (46-116) Creatine Kinase 75 U/L (26-192) Creatine Kinase MB (Mass) < 0.5 ng/mL (0.0-3.6) Creatine Kinase MB Relative Index % (0-4) Troponin I Quantitative < 0.017 ng/mL (0.000-0.055) Total Protein 8.0 g/dL (6.4-8.2) Albumin 3.7 g/dL (3.4-5.0) Albumin/Globulin Ratio 0.9 (1.0-1.7) Urine Collection Type Unknown Urine Color Yellow Urine Clarity Clear Urine pH 5.5 Urine Specific [place] 1.020 Urine Protein Negative mg/dL (NEG-TRACE) Urine Glucose (UA) Negative mg/dL (NEG) Urine Ketones (Stick) Negative mg/dL (NEG) Urine Blood Negative (NEG) Urine Nitrite Negative (NEG) Urine Bilirubin Negative (NEG) Urine Urobilinogen Dipstick 0.2 mg/dL (0.2 mg/dL) Urine Leukocyte Esterase Negative (NEG) Urine RBC 0 /HPF (0-2) Urine WBC 1-4 /HPF (0-4) Urine Squamous Epithelial Cells Mod /LPF Urine Bacteria Few /HPF (0-FEW) Urine Mucus Mod /LPF Urine Test Negative (NEG) Urine Opiates Screen Neg (NEG) Urine Methadone Screen Neg (NEG) Urine Barbiturates Neg (NEG) Urine Phencyclidine Screen Neg (NEG) Urine Amphetamine/Methamphetamine Neg (NEG) Urine Benzodiazepines Screen Neg (NEG) Urine Cocaine Screen Neg (NEG) Urine Cannabinoids Screen Pos (NEG) Urine Ethyl Alcohol Neg (NEG) Laboratory Tests Test 09/21/19 15:16 09/21/19 15:24 White Blood Count 9.5 x10^3/uL (4.0-11.0) Red Blood Count 4.18 x10^6/uL (3.50-5.40) Hemoglobin 7.6 g/dL (12.0-15.5) Hematocrit 26.1 % (36.0-47.0) Mean Corpuscular Volume 63 fL (79-100) Mean Corpuscular Hemoglobin 18 pg (25-35) Mean Corpuscular Hemoglobin Concent 29 g/dL (31-37) Red Cell Distribution Width 17.4 % (11.5-14.5) Platelet Count 339 x10^3/uL (140-400) Neutrophils (%) (Auto) 70 % (31-73) Lymphocytes (%) (Auto) 22 % (24-48) Monocytes (%) (Auto) 5 % (0-9) Eosinophils (%) (Auto) 2 % (0-3) Basophils (%) (Auto) 1 % (0-3) Neutrophils # (Auto) 6.7 x10^3/uL (1.8-7.7) Lymphocytes # (Auto) 2.1 x10^3/uL (1.0-4.8) Monocytes # (Auto) 0.5 x10^3/uL (0.0-1.1) Eosinophils # (Auto) 0.2 x10^3/uL (0.0-0.7) Basophils # (Auto) 0.1 x10^3/uL (0.0-0.2) Sodium Level 142 mmol/L (136-145) Potassium Level 3.3 mmol/L (3.5-5.1) Chloride Level 105 mmol/L (98-107) Carbon Dioxide Level 27 mmol/L (21-32) Anion Gap 10 (6-14) Blood Urea Nitrogen 6 mg/dL (7-20) Creatinine 0.7 mg/dL (0.6-1.0) Estimated GFR (Cockcroft-Gault) 121.5 BUN/Creatinine Ratio 9 (6-20) Glucose Level 77 mg/dL (70-99) Calcium Level 8.8 mg/dL (8.5-10.1) Magnesium Level 1.9 mg/dL (1.8-2.4) Total Bilirubin 0.4 mg/dL (0.2-1.0) Aspartate Amino Transf (AST/SGOT) 12 U/L (15-37) Alanine Aminotransferase (ALT/SGPT) 12 U/L (14-59) Alkaline Phosphatase 47 U/L (46-116) Creatine Kinase 75 U/L (26-192) Creatine Kinase MB (Mass) < 0.5 ng/mL (0.0-3.6) Creatine Kinase MB Relative Index % (0-4) Troponin I Quantitative < 0.017 ng/mL (0.000-0.055) Total Protein 8.0 g/dL (6.4-8.2) Albumin 3.7 g/dL (3.4-5.0) Albumin/Globulin Ratio 0.9 (1.0-1.7) Urine Collection Type Unknown Urine Color Yellow Urine Clarity Clear Urine pH 5.5 Urine Specific [place] 1.020 Urine Protein Negative mg/dL (NEG-TRACE) Urine Glucose (UA) Negative mg/dL (NEG) Urine Ketones (Stick) Negative mg/dL (NEG) Urine Blood Negative (NEG) Urine Nitrite Negative (NEG) Urine Bilirubin Negative (NEG) Urine Urobilinogen Dipstick 0.2 mg/dL (0.2 mg/dL) Urine Leukocyte Esterase Negative (NEG) Urine RBC 0 /HPF (0-2) Urine WBC 1-4 /HPF (0-4) Urine Squamous Epithelial Cells Mod /LPF Urine Bacteria Few /HPF (0-FEW) Urine Mucus Mod /LPF Urine Test Negative (NEG) Urine Opiates Screen Neg (NEG) Urine Methadone Screen Neg (NEG) Urine Barbiturates Neg (NEG) Urine Phencyclidine Screen Neg (NEG) Urine Amphetamine/Methamphetamine Neg (NEG) Urine Benzodiazepines Screen Neg (NEG) Urine Cocaine Screen Neg (NEG) Urine Cannabinoids Screen Pos (NEG) Urine Ethyl Alcohol Neg (NEG) VTE Prophylaxis Ordered VTE Prophylaxis Devices: Contraindicated VTE Pharmacological Prophylaxi: Contraindicated Assessment/Plan Assessment/Plan Syncope Symptomatic anemia - hgb 7 Microcytic anemia- MCv 60s - hx of recalcitrant to iron supplements per her acct Obesity MEnometrorrhagia hx - not currently Hypokalemia, mild PLAN: Check hemoglobin electrophoresis, i did not order sickle cell screen since she realys a clear story of heme onc in [place] telling her she was tested for it and it was not sickle cell I threw in iron panel just because Transfuse even though hgb is 7 plus bec of symptoms Check echo just for completion, make sure not HOCM etc causing syncope HH tmr K tmr HEme onc consult in AM seen at ER FULL CODE NO need for provera etc as she is not having heavy periods for the last 2 mos DU CAVAZOS MD Sep 21, 2019 17:44
[2019-09-21] MEDS ORDERED: ACETAMINOPHEN/CODEINE 300/30MG TABLET. PO PRN (17:45)
[2019-09-21] MEDS ORDERED: ZOLPIDEM 5 MG TABLET. PO PRN (17:45)
[2019-09-21] MEDS ORDERED: CALCIUM CARBONATE 500 MG TAB.CHEW PO PRN (17:45)
[2019-09-21 18:02] LABS: ANISOCYTOSIS SLIGHT; HYPOCHROMIA MARKED; MICROCYTOSIS MARKED; PLT ESTIMATE ADEQUATE (ADEQUATE); POLYCHROMASIA SLIGHT
[2019-09-21 19:15] VITALS: BP 112/81
--- NOTE | 2019-09-21 19:30 | NUR ---
The patient, GUSTAVO WHITMAN, 29 y/o, F admitted by DU CAVAZOS MD, was given written information regarding hospital policies, unit procedures and contact persons. Valuables were checked and left with in the room.
[2019-09-21 20:56] VITALS: BP 121/79
[2019-09-21 21:11] VITALS: BP 121/76
[2019-09-21 22:11] VITALS: BP 119/70
[2019-09-21 23:00] VITALS: BP 116/74
[2019-09-21 23:11] VITALS: BP 116/74
[2019-09-22] VITALS (7 sets, daily range): BP systolic 113–128; BP diastolic 73–82
[2019-09-22 05:18] LABS: HEMOGLOBIN 8.1 g/dL (12.0-15.5)
--- NOTE | 2019-09-22 06:43 | EKG ---
[facility] [address] [place] [address] Test Date: 2019-09-21 Test Time: 16:10:14 Pat Name: GUSTAVO WHITMAN Department: Room: 569 1 Gender: F [employer]: : 1990 Requested By: JENNIFER HADDAD Order Number: [id number] Reading MD: Landen Sr MD Measurements Intervals [place] Rate: 60 P: 59 W[place]: 156 QRS: 58 QRSD: 82 T: 34 QT: 398 QTc: 402 Interpretive Statements SINUS RHYTHM NON-SPECIFIC ST/T CHANGES Electronically Signed On 10-06-2019 8:45:06 KNOCKOUT MAN by Landen Sr MD
[2019-09-22] MEDS: ONDANSETRON PF 4 MG/2 ML VIAL. IVP PRN ×2 (07:30→17:36)
--- NOTE | 2019-09-22 07:33 | NUR ---
Pt c/o nausea this morning. States she woke up to a sharp pain shooting through her spine. State she has had 6 blood transfusions total in the last 11 years. States she has had delayed reactions after every transfusion. At 16, post delivery of a baby, she lost feeling to her legs and was unable to walk. That lasted approx. 2 days. At 20, post delivery of a baby, she had a similar experience that lasted approx. week. At 21, post delivery of a baby, she broke out in hives, throat swelling, facial edema. She also had infusion therapy and had the same reaction. The 4th transfusion was admitted for her history of post transfusion reactions. The 5th transfusion, she had facial swelling, throat swelling post infusion. Her 6th transfusion was 09/21 at [facility]. States she is afraid she is starting to have another reaction due to nausea and back pain. States she felt hot and cold through out the night. Zofran was administered, will relay info to provider. Will continue to monitor.
[2019-09-22] MEDS: FERROUS SULFATE 325 MG TABLET. PO SCH (08:00)
[2019-09-22] MEDS: LIDOCAINE (700MG/PATCH) PATCH. TD SCH (09:15)
[2019-09-22] MEDS ORDERED: KETOROLAC 15 MG/ML VIAL. IVP ONE (09:15)
[2019-09-22] MEDS ORDERED: IV NORMAL SALINE 1000ML BAG 1,000 ML IV ONE (09:15)
--- NOTE | 2019-09-22 09:17 | PDOC ---
PROGRESS NOTES Chief Complaint Chief Complaint Syncope Symptomatic anemia - hgb 7 Microcytic anemia- MCv 60s - hx of recalcitrant to iron supplements per her acct Obesity MEnometrorrhagia hx - not currently Hypokalemia, mild NAusea BAck pain, acute History of Present Illness History of Present Illness got 1 pRBC yesterday and hgb 8 plus from, 7. plus She was symptomatic with claimed syncope No menorrhagia currently SOme back pain today and nausea Poor liquid intake, urine is concentrated PLan: Lidoderm patch now to back Toradol 15 mg only now for back pain NS 1 L x 1 I encouraged inc OFI Add retic ct - added by heme onc already HEmoglobin electrophoresis in the works tmr echo S(yncope) Vitals Vitals Vital Signs Date Time Temp Pulse Resp B/P (MAP) Pulse Ox O2 Delivery O2 Flow Rate FiO2 09/22/19 08:43 20 Room Air 09/22/19 07:00 98.4 65 119/82 (94) 100 98.4 Physical Exam General: Alert, Oriented X3, Cooperative, No acute distress Heart: Regular rate, Normal S1, Normal S2 Lungs: Clear Abdomen: Normal bowel sounds, Soft, No tenderness, No hepatosplenomegaly, No masses Extremities: No clubbing, No cyanosis, No edema, Normal pulses, No tenderness/swelling Skin: No rashes, No breakdown, No significant lesion Labs LABS Laboratory Tests Test 09/21/19 15:16 09/21/19 15:24 09/22/19 03:30 White Blood Count 9.5 x10^3/uL (4.0-11.0) Red Blood Count 4.18 x10^6/uL (3.50-5.40) Hemoglobin 7.6 g/dL (12.0-15.5) 8.1 g/dL (12.0-15.5) Hematocrit 26.1 % (36.0-47.0) 27.0 % (36.0-47.0) Mean Corpuscular Volume 63 fL (79-100) Mean Corpuscular Hemoglobin 18 pg (25-35) Mean Corpuscular Hemoglobin Concent 29 g/dL (31-37) 30 g/dL (31-37) Red Cell Distribution Width 17.4 % (11.5-14.5) Platelet Count 339 x10^3/uL (140-400) Neutrophils (%) (Auto) 70 % (31-73) Lymphocytes (%) (Auto) 22 % (24-48) Monocytes (%) (Auto) 5 % (0-9) Eosinophils (%) (Auto) 2 % (0-3) Basophils (%) (Auto) 1 % (0-3) Neutrophils # (Auto) 6.7 x10^3/uL (1.8-7.7) Lymphocytes # (Auto) 2.1 x10^3/uL (1.0-4.8) Monocytes # (Auto) 0.5 x10^3/uL (0.0-1.1) Eosinophils # (Auto) 0.2 x10^3/uL (0.0-0.7) Basophils # (Auto) 0.1 x10^3/uL (0.0-0.2) Platelet Estimate Adequate (ADEQUATE) Polychromasia Slight Hypochromasia Marked Anisocytosis Slight Microcytosis Marked Sodium Level 142 mmol/L (136-145) Potassium Level 3.3 mmol/L (3.5-5.1) 3.6 mmol/L (3.5-5.1) Chloride Level 105 mmol/L (98-107) Carbon Dioxide Level 27 mmol/L (21-32) Anion Gap 10 (6-14) Blood Urea Nitrogen 6 mg/dL (7-20) Creatinine 0.7 mg/dL (0.6-1.0) Estimated GFR (Cockcroft-Gault) 121.5 BUN/Creatinine Ratio 9 (6-20) Glucose Level 77 mg/dL (70-99) Calcium Level 8.8 mg/dL (8.5-10.1) Magnesium Level 1.9 mg/dL (1.8-2.4) Iron Level 9 ug/dL (50-170) Total Iron Binding Capacity 458 ug/dL (250-450) Iron Saturation 2 % (15-34) Total Bilirubin 0.4 mg/dL (0.2-1.0) Aspartate Amino Transf (AST/SGOT) 12 U/L (15-37) Alanine Aminotransferase (ALT/SGPT) 12 U/L (14-59) Alkaline Phosphatase 47 U/L (46-116) Creatine Kinase 75 U/L (26-192) Creatine Kinase MB (Mass) < 0.5 ng/mL (0.0-3.6) Creatine Kinase MB Relative Index % (0-4) Troponin I Quantitative < 0.017 ng/mL (0.000-0.055) Total Protein 8.0 g/dL (6.4-8.2) Albumin 3.7 g/dL (3.4-5.0) Albumin/Globulin Ratio 0.9 (1.0-1.7) Urine Collection Type Unknown Urine Color Yellow Urine Clarity Clear Urine pH 5.5 Urine Specific [place] 1.020 Urine Protein Negative mg/dL (NEG-TRACE) Urine Glucose (UA) Negative mg/dL (NEG) Urine Ketones (Stick) Negative mg/dL (NEG) Urine Blood Negative (NEG) Urine Nitrite Negative (NEG) Urine Bilirubin Negative (NEG) Urine Urobilinogen Dipstick 0.2 mg/dL (0.2 mg/dL) Urine Leukocyte Esterase Negative (NEG) Urine RBC 0 /HPF (0-2) Urine WBC 1-4 /HPF (0-4) Urine Squamous Epithelial Cells Mod /LPF Urine Bacteria Few /HPF (0-FEW) Urine Mucus Mod /LPF Urine Test Negative (NEG) Urine Opiates Screen Neg (NEG) Urine Methadone Screen Neg (NEG) Urine Barbiturates Neg (NEG) Urine Phencyclidine Screen Neg (NEG) Urine Amphetamine/Methamphetamine Neg (NEG) Urine Benzodiazepines Screen Neg (NEG) Urine Cocaine Screen Neg (NEG) Urine Cannabinoids Screen Pos (NEG) Urine Ethyl Alcohol Neg (NEG) Review of Systems Review of Systems nausea, back pain today, all else 14 pt neg Assessment and Plan Assessmemt and Plan Problems Medical Problems: (1) Anemia Status: Acute (2) Hypokalemia Status: Acute (3) Syncope Status: Acute Comment Review of Relevant I have reviewed the following items mario (where applicable) has been applied. Labs Laboratory Tests Test 09/21/19 15:16 09/21/19 15:24 09/22/19 03:30 White Blood Count 9.5 x10^3/uL (4.0-11.0) Red Blood Count 4.18 x10^6/uL (3.50-5.40) Hemoglobin 7.6 g/dL (12.0-15.5) 8.1 g/dL (12.0-15.5) Hematocrit 26.1 % (36.0-47.0) 27.0 % (36.0-47.0) Mean Corpuscular Volume 63 fL (79-100) Mean Corpuscular Hemoglobin 18 pg (25-35) Mean Corpuscular Hemoglobin Concent 29 g/dL (31-37) 30 g/dL (31-37) Red Cell Distribution Width 17.4 % (11.5-14.5) Platelet Count 339 x10^3/uL (140-400) Neutrophils (%) (Auto) 70 % (31-73) Lymphocytes (%) (Auto) 22 % (24-48) Monocytes (%) (Auto) 5 % (0-9) Eosinophils (%) (Auto) 2 % (0-3) Basophils (%) (Auto) 1 % (0-3) Neutrophils # (Auto) 6.7 x10^3/uL (1.8-7.7) Lymphocytes # (Auto) 2.1 x10^3/uL (1.0-4.8) Monocytes # (Auto) 0.5 x10^3/uL (0.0-1.1) Eosinophils # (Auto) 0.2 x10^3/uL (0.0-0.7) Basophils # (Auto) 0.1 x10^3/uL (0.0-0.2) Platelet Estimate Adequate (ADEQUATE) Polychromasia Slight Hypochromasia Marked Anisocytosis Slight Microcytosis Marked Sodium Level 142 mmol/L (136-145) Potassium Level 3.3 mmol/L (3.5-5.1) 3.6 mmol/L (3.5-5.1) Chloride Level 105 mmol/L (98-107) Carbon Dioxide Level 27 mmol/L (21-32) Anion Gap 10 (6-14) Blood Urea Nitrogen 6 mg/dL (7-20) Creatinine 0.7 mg/dL (0.6-1.0) Estimated GFR (Cockcroft-Gault) 121.5 BUN/Creatinine Ratio 9 (6-20) Glucose Level 77 mg/dL (70-99) Calcium Level 8.8 mg/dL (8.5-10.1) Magnesium Level 1.9 mg/dL (1.8-2.4) Iron Level 9 ug/dL (50-170) Total Iron Binding Capacity 458 ug/dL (250-450) Iron Saturation 2 % (15-34) Total Bilirubin 0.4 mg/dL (0.2-1.0) Aspartate Amino Transf (AST/SGOT) 12 U/L (15-37) Alanine Aminotransferase (ALT/SGPT) 12 U/L (14-59) Alkaline Phosphatase 47 U/L (46-116) Creatine Kinase 75 U/L (26-192) Creatine Kinase MB (Mass) < 0.5 ng/mL (0.0-3.6) Creatine Kinase MB Relative Index % (0-4) Troponin I Quantitative < 0.017 ng/mL (0.000-0.055) Total Protein 8.0 g/dL (6.4-8.2) Albumin 3.7 g/dL (3.4-5.0) Albumin/Globulin Ratio 0.9 (1.0-1.7) Urine Collection Type Unknown Urine Color Yellow Urine Clarity Clear Urine pH 5.5 Urine Specific [place] 1.020 Urine Protein Negative mg/dL (NEG-TRACE) Urine Glucose (UA) Negative mg/dL (NEG) Urine Ketones (Stick) Negative mg/dL (NEG) Urine Blood Negative (NEG) Urine Nitrite Negative (NEG) Urine Bilirubin Negative (NEG) Urine Urobilinogen Dipstick 0.2 mg/dL (0.2 mg/dL) Urine Leukocyte Esterase Negative (NEG) Urine RBC 0 /HPF (0-2) Urine WBC 1-4 /HPF (0-4) Urine Squamous Epithelial Cells Mod /LPF Urine Bacteria Few /HPF (0-FEW) Urine Mucus Mod /LPF Urine Test Negative (NEG) Urine Opiates Screen Neg (NEG) Urine Methadone Screen Neg (NEG) Urine Barbiturates Neg (NEG) Urine Phencyclidine Screen Neg (NEG) Urine Amphetamine/Methamphetamine Neg (NEG) Urine Benzodiazepines Screen Neg (NEG) Urine Cocaine Screen Neg (NEG) Urine Cannabinoids Screen Pos (NEG) Urine Ethyl Alcohol Neg (NEG) Laboratory Tests Test 09/21/19 15:16 09/21/19 15:24 09/22/19 03:30 White Blood Count 9.5 x10^3/uL (4.0-11.0) Red Blood Count 4.18 x10^6/uL (3.50-5.40) Hemoglobin 7.6 g/dL (12.0-15.5) 8.1 g/dL (12.0-15.5) Hematocrit 26.1 % (36.0-47.0) 27.0 % (36.0-47.0) Mean Corpuscular Volume 63 fL (79-100) Mean Corpuscular Hemoglobin 18 pg (25-35) Mean Corpuscular Hemoglobin Concent 29 g/dL (31-37) 30 g/dL (31-37) Red Cell Distribution Width 17.4 % (11.5-14.5) Platelet Count 339 x10^3/uL (140-400) Neutrophils (%) (Auto) 70 % (31-73) Lymphocytes (%) (Auto) 22 % (24-48) Monocytes (%) (Auto) 5 % (0-9) Eosinophils (%) (Auto) 2 % (0-3) Basophils (%) (Auto) 1 % (0-3) Neutrophils # (Auto) 6.7 x10^3/uL (1.8-7.7) Lymphocytes # (Auto) 2.1 x10^3/uL (1.0-4.8) Monocytes # (Auto) 0.5 x10^3/uL (0.0-1.1) Eosinophils # (Auto) 0.2 x10^3/uL (0.0-0.7) Basophils # (Auto) 0.1 x10^3/uL (0.0-0.2) Platelet Estimate Adequate (ADEQUATE) Polychromasia Slight Hypochromasia Marked Anisocytosis Slight Microcytosis Marked Sodium Level 142 mmol/L (136-145) Potassium Level 3.3 mmol/L (3.5-5.1) 3.6 mmol/L (3.5-5.1) Chloride Level 105 mmol/L (98-107) Carbon Dioxide Level 27 mmol/L (21-32) Anion Gap 10 (6-14) Blood Urea Nitrogen 6 mg/dL (7-20) Creatinine 0.7 mg/dL (0.6-1.0) Estimated GFR (Cockcroft-Gault) 121.5 BUN/Creatinine Ratio 9 (6-20) Glucose Level 77 mg/dL (70-99) Calcium Level 8.8 mg/dL (8.5-10.1) Magnesium Level 1.9 mg/dL (1.8-2.4) Iron Level 9 ug/dL (50-170) Total Iron Binding Capacity 458 ug/dL (250-450) Iron Saturation 2 % (15-34) Total Bilirubin 0.4 mg/dL (0.2-1.0) Aspartate Amino Transf (AST/SGOT) 12 U/L (15-37) Alanine Aminotransferase (ALT/SGPT) 12 U/L (14-59) Alkaline Phosphatase 47 U/L (46-116) Creatine Kinase 75 U/L (26-192) Creatine Kinase MB (Mass) < 0.5 ng/mL (0.0-3.6) Creatine Kinase MB Relative Index % (0-4) Troponin I Quantitative < 0.017 ng/mL (0.000-0.055) Total Protein 8.0 g/dL (6.4-8.2) Albumin 3.7 g/dL (3.4-5.0) Albumin/Globulin Ratio 0.9 (1.0-1.7) Urine Collection Type Unknown Urine Color Yellow Urine Clarity Clear Urine pH 5.5 Urine Specific [place] 1.020 Urine Protein Negative mg/dL (NEG-TRACE) Urine Glucose (UA) Negative mg/dL (NEG) Urine Ketones (Stick) Negative mg/dL (NEG) Urine Blood Negative (NEG) Urine Nitrite Negative (NEG) Urine Bilirubin Negative (NEG) Urine Urobilinogen Dipstick 0.2 mg/dL (0.2 mg/dL) Urine Leukocyte Esterase Negative (NEG) Urine RBC 0 /HPF (0-2) Urine WBC 1-4 /HPF (0-4) Urine Squamous Epithelial Cells Mod /LPF Urine Bacteria Few /HPF (0-FEW) Urine Mucus Mod /LPF Urine Test Negative (NEG) Urine Opiates Screen Neg (NEG) Urine Methadone Screen Neg (NEG) Urine Barbiturates Neg (NEG) Urine Phencyclidine Screen Neg (NEG) Urine Amphetamine/Methamphetamine Neg (NEG) Urine Benzodiazepines Screen Neg (NEG) Urine Cocaine Screen Neg (NEG) Urine Cannabinoids Screen Pos (NEG) Urine Ethyl Alcohol Neg (NEG) Medications Current Medications Potassium Chloride (Klor-Con) 40 meq 1X ONCE PO Last administered on 09/21/19at 17:02; Start 09/21/19 at 16:45; Stop 09/21/19 at 16:46; Status DC Ferrous Sulfate (Feosol) 325 mg DAILYWBKFT PO ; Start 09/22/19 at 08:00 Ondansetron HCl (Zofran) 4 mg PRN Q6HRS PRN IVP NAUSEA/VOMITING Last administered on 09/22/19at 07:30; Start 09/21/19 at 17:45 Acetaminophen/ Codeine Phosphate (Tylenol #3) 1 tab PRN Q6HRS PRN PO PAIN Last administered on 09/22/19at 08:43; Start 09/21/19 at 17:45 Zolpidem Tartrate (Ambien) 5 mg PRN QHS PRN PO INSOMNIA; Start 09/21/19 at 17:45 Calcium Carbonate/ Glycine (Tums) 500 mg PRN AFTMEALHC PRN PO INDIGESTION; Start 09/21/19 at 17:45 Iron Sucrose 500 mg/Sodium Chloride 275 ml @ 78.571 mls/ hr 1X ONCE IV ; Start 09/22/19 at 09:30; Stop 09/22/19 at 12:59 Active Scripts Active Cephalexin 500 Mg Capsule 1 Cap PO BID 10 Days Medrol (Methylprednisolone) 4 Mg Tab.ds.pk 1 Pkg PO UD Amoxicillin 500 Mg Tablet 1 Tab PO BID Proair Hfa (Albuterol Sulfate) 8.5 Gm Hfa.aer.ad 1 Puff INH PRN Q6HRS PRN Prednisone 50 Mg Tablet 1 Tab PO DAILY Promethazine-Codeine Syrup (Promethazine Hcl/Codeine) 118 Ml Syrup 5 Ml PO Q4- 6HRS Zithromax (Azithromycin) 250 Mg Tablet 1 Pkg PO UD Ibuprofen 600 Mg Tablet 600 Mg PO PRN Q6HRS PRN Vitals/I & O Vital Sign - Last 24 Hours 09/21/19 09/21/19 09/21/19 09/21/19 14:52 15:06 16:14 16:17 Temp 98.7 98.7 Pulse 67 63 63 67 Resp 12 12 12 12 B/P (MAP) 123/77 (92) 123/77 (92) 120/70 (87) 128/82 (97) Pulse Ox 100 96 100 100 O2 Delivery Room Air Room Air Room Air Room Air 09/21/19 09/21/19 09/21/19 09/21/19 16:20 19:15 20:00 20:56 Temp 99.0 98.5 99.0 98.5 Pulse 72 69 74 Resp 12 20 18 B/P (MAP) 124/85 (98) 112/81 (91) 121/79 Pulse Ox 100 100 O2 Delivery Room Air Room Air Room Air 09/21/19 09/21/19 09/21/19 09/21/19 21:11 22:11 23:00 23:11 Temp 98.6 98.5 98.6 98.6 98.6 98.5 98.6 98.6 Pulse 74 70 80 80 Resp 18 16 20 20 B/P (MAP) 121/76 119/70 116/74 (88) 116/74 Pulse Ox 99 O2 Delivery Room Air 09/22/19 09/22/19 09/22/19 09/22/19 00:13 03:00 07:00 08:43 Temp 98.5 98.3 98.4 98.5 98.3 98.4 Pulse 74 59 65 Resp 16 18 18 20 B/P (MAP) 113/80 114/73 (87) 119/82 (94) Pulse Ox 100 100 O2 Delivery Room Air Room Air Room Air Intake and Output 09/21/19 09/21/19 09/22/19 15:00 23:00 07:00 Intake Total 520 ml 650 ml Balance 520 ml 650 ml DU CAVAZOS MD Sep 22, 2019 09:17
[2019-09-22] MEDS ORDERED: oxyCODONE/APAP 5/325 1 TAB TABLET PO PRN (09:30)
[2019-09-22] MEDS ORDERED: IRON SUCROSE COMPLEX 500 MG in IV NORMAL SALINE 250ML 250 ML IV ONE (09:30)
--- NOTE | 2019-09-22 09:47 | CONS ---
DATE OF CONSULTATION: 09/22/2019 MEDICAL ONCOLOGY HEMATOLOGY CONSULTATION CONSULTATION REQUESTED BY: Madhuri Mckenzie MD REASON FOR CONSULTATION: Iron deficiency anemia. HISTORY OF PRESENTING ILLNESS: The patient is a 29-year-old -[place] female, who reports history of chronic iron deficiency anemia. She reports that she had anemia at least since the age of 18. She has had 6 blood transfusions in 11 years prior to this admission. She has had delayed reactions to transfusions. She had a transfusion on 09/21/[address] [facility] and she had nausea and back pain and she received Zofran. She reports that she never responded to oral iron supplementation. She received IV iron in 2012 in [place] and she had a reaction to that. She never took any more iron after that. She does not take any oral iron supplementation. She was admitted to [facility] on 09/21/2019 after a syncopal episode. No history of cardiac issues or arrhythmias. She has had menorrhagia. No nosebleeds or gum bleeding. No hematemesis, melena, or hematochezia. No hemoptysis or hematuria. She was noted to have hemoglobin of 7.6 on 09/21/2019 with an MCV of 63 and a platelet count of 339 and WBC 9.5. She was given 1 unit of PRBC transfusion on 09/21/2019. Hemoglobin improved to 8.1. Her iron level was 9 with a TIBC of 458 and iron saturation of 2%. I was asked to see her for iron deficiency. PAST MEDICAL HISTORY: Kidney stones and chronic iron deficiency anemia. FAMILY HISTORY: Negative for primary hematologic disorders. SOCIAL HISTORY: No smoking or alcohol abuse. REVIEW OF SYSTEMS: A 12-point review of system was performed. Pertinent positives are mentioned in the history of presenting illness. Rest of the system review is negative. PHYSICAL EXAMINATION: GENERAL APPEARANCE: The patient is a 29-year-old -[place] female, who is in no acute cardiorespiratory distress. VITAL SIGNS: Blood pressure 119/82, temperature 98.4. HEENT: Atraumatic, normocephalic. Eyes: No icterus. NECK: Supple. CHEST: Bilaterally symmetrical. HEART: S1, S2 normal. ABDOMEN: Soft, nontender. CENTRAL NERVOUS SYSTEM: No focal deficits. LYMPHATICS: No lymphadenopathy. SKIN: No rashes. PSYCHOLOGIC: Mood and affect are appropriate. MUSCULOSKELETAL: No joint effusions. LABORATORY DATA: WBC 9.5, hemoglobin 7.6, MCV 63, platelet count 339 on 09/21/2019. Peripheral smear reveals evidence of microcytic hypochromic red cells. Iron is 9, iron saturation is 2%, TIBC 458. IMPRESSION AND PLAN: 1. Iron deficiency anemia secondary to chronic blood loss due to menorrhagia. She reports that she never responds to oral iron. She has been started on oral iron supplementation. I will start her on IV Venofer 500 mg IV x 1 dose today. Monitor for reactions closely. She reports having had a reaction in 2012 to IV iron, but she does not recall the type of iron that she received. I reviewed the risks and benefits and she understands and agrees to proceed with IV iron. I have advised her to follow up with me next month for ongoing monitoring of her anemia and to treat her with IV iron as needed. I will also check B12 and reticulocyte count. 2. Menorrhagia. Management per primary team. INOCENCIO LOREDO MD DR: IRWIN/lorie JOB#: [id number] / [id number] MAXIMO
--- NOTE | 2019-09-22 13:18 | CARD ---
MR#: [id number] Date of Study: 09/22/2019 Ordering Physician: DU CAVAZOS, Referring Physician: DU CAVAZOS Tech: Anny Cazares APPROVED REPORT EXAM: Two-dimensional and M-mode echocardiogram with Doppler and color Doppler. Other Information Quality : AverageHR: 52bpm INDICATION Syncope 2D DIMENSIONS RVDd3.5 (2.9-3.5cm)Left Atrium(2D)3.5 (1.6-4.0cm) IVSd1.0 (0.7-1.1cm)Aortic Root(2D)2.8 (2.0-3.7cm) LVDd4.8 (3.9-5.9cm)LVOT Diameter2.2 (1.8-2.4cm) PWd1.0 (0.7-1.1cm)LVDs3.0 (2.5-4.0cm) FS (%) 36.2 %SV69.8 ml LVEF(%)65.8 (>50%) Aortic Valve AoV Peak Pito.117.9cm/sAoV VTI23.8cm AO Peak GR.5.6mmHgLVOT Peak Pito.81.6cm/s LVOT VTI 16.13cmAO Mean GR.3mmHg JACK (VMAX)1.56qg6LWS (VTI)2.47cm2 Mitral Valve MV E Cpfwwxvw45.2cm/sMV DECEL BHLE882in MV A Yphidylt95.8cm/sMV RHI75nh E/A Ratio2.7MVA (PHT)2.92cm2 TDI E/Lateral E'4.8E/Medial E'6.8 Pulmonary Valve PV Peak Heqgnokz05.1cm/sPV Peak Grad.3mmHg Tricuspid Valve TR P. Viheuafh480kk/sRAP [id number] TR Peak Gr.54iiZwPVWM79hhHe Pulmonary Vein S1 Slqzhydb14.9cm/sD2 Fycuhrqo18.2cm/s PVa [id number] LEFT VENTRICLE The left ventricle is normal size. There is normal left ventricular wall thickness. The left ventricu lar systolic function is normal and the ejection fraction is within normal range. The Ejection Fracti on is 55-60%. There is normal LV segmental wall motion. The left ventricular diastolic function and f illing is normal for age. RIGHT VENTRICLE The right ventricle is normal size. There is normal right ventricular wall thickness. The right ventr icular systolic function is normal. ATRIA The left atrium size is normal. The right atrium size is normal. The interatrial septum is intact wit h no evidence for an atrial septal defect or patent foramen ovale as noted on 2-D or Doppler imaging. AORTIC VALVE The aortic valve is normal in structure and function. Doppler and Color Flow revealed no significant aortic regurgitation. There is no significant aortic valvular stenosis. MITRAL VALVE The mitral valve is normal in structure and function. There is no evidence of mitral valve prolapse. There is no mitral valve stenosis. Doppler and Color Flow revealed no mitral valve regurgitation note d. TRICUSPID VALVE The tricuspid valve is normal in structure and function. Doppler and Color Flow revealed mild tricusp id regurgitation with an estimated PAP of 36 mmHg. There is no tricuspid valve prolapse or vegetation . There is no tricuspid valve stenosis. PULMONIC VALVE The pulmonic valve is not well visualized. Doppler and Color Flow revealed no pulmonic valvular regur gitation. GREAT VESSELS The aortic root is normal in size. The IVC is dilated and collapses <50% with inspiration. PERICARDIAL EFFUSION There is no evidence of significant pericardial effusion. Critical Notification Critical Value: No <Conclusion> The left ventricle is normal size. The left ventricular systolic function is normal and the ejection fraction is within normal range. The Ejection Fraction is 55-60%. There is no significant aortic valvular stenosis. Doppler and Color Flow revealed no significant aortic regurgitation. Doppler and Color Flow revealed no mitral valve regurgitation noted. Doppler and Color Flow revealed mild tricuspid regurgitation with an estimated PAP of 36 mmHg. Signed by : Javy Dacosta MD Electronically Approved : 09/22/2019 13:17:40
[2019-09-22] MEDS: CYANOCOBALAMIN (VITAMIN B-12) 1,000 MCG/ML VIAL IM SCH (17:42)
[2019-09-22] MEDS ORDERED: MORPHINE SULFATE 2 MG/ML VIAL. IV PRN (20:45)
[2019-09-22] MEDS ORDERED: PATCH REMOVAL. MC SCH (21:00)
[2019-09-23 03:00] VITALS: BP 115/80
[2019-09-23 04:59] LABS: HEMATOCRIT 25.3 % (36.0-47.0); HEMOGLOBIN 7.5 g/dL (12.0-15.5); RED BLOOD COUNT 3.91 x10^6/uL (3.50-5.40); RED CELL DISTRIBUTION WIDTH 19.7 % (11.5-14.5); WHITE BLOOD COUNT 7.2 x10^3/uL (4.0-11.0)
[2019-09-23 05:10] LABS: CALCIUM 8.3 mg/dL (8.5-10.1); CREATININE 0.7 mg/dL (0.6-1.0); GFR 121.5; POTASSIUM 3.4 mmol/L (3.5-5.1)
[2019-09-23 07:00] VITALS: BP 110/66
[2019-09-23] MEDS ORDERED: POTASSIUM CHLORIDE 20 MEQ TABLET.ER. PO ONE (07:45)
--- NOTE | 2019-09-23 08:42 | NUR ---
SW following pt for dc planning. Chart reviewed. Pt lives at home. No SW needs identified at this time. SW will be available as needed.
--- NOTE | 2019-09-23 09:08 | PDOC ---
PROGRESS NOTES Subjective Subjective HPI - f/u of Iron deficiency anemia ROS - no fever Objective Objective Vital Signs Date Time Temp Pulse Resp B/P (MAP) Pulse Ox O2 Delivery O2 Flow Rate FiO2 09/23/19 07:00 98.1 60 14 110/66 (81) 100 Room Air 98.1 Intake and Output 09/23/19 07:00 Intake Total 1840 ml Balance 1840 ml Intake Oral 840 ml IV Total 1000 ml # Voids 2 Physical Exam General: Alert, Oriented X3, No acute distress Neuro: Normal speech Psych/Mental Status: Mental status NL Assessment Assessment Problems Medical Problems: (1) Anemia Status: Acute (2) Hypokalemia Status: Acute (3) Syncope Status: Acute IMPRESSION AND PLAN: 1. Iron deficiency anemia secondary to chronic blood loss due to menorrhagia. She reports that she never responds to oral iron. She has been started on oral iron supplementation. s/p IV Venofer 500 mg IV x 1 dose 09/22/19. She reports having chest tightness after the infusion, better now. She reports having had a reaction in 2012 to IV iron, but she does not recall the type of iron that she received. f/u with PCP upon discharge. 2. Menorrhagia. Management per primary team. 3. B12 def - started B12 inj. Comment Review of Relevant I have reviewed the following items mario (where applicable) has been applied. Labs Laboratory Tests Test 09/21/19 15:16 09/21/19 15:24 09/22/19 03:30 09/23/19 04:15 White Blood Count 9.5 x10^3/uL (4.0-11.0) 7.2 x10^3/uL (4.0-11.0) Red Blood Count 4.18 x10^6/uL (3.50-5.40) 4.24 x10^6/uL (3.50-5.70) 3.91 x10^6/uL (3.50-5.40) Hemoglobin 7.6 g/dL (12.0-15.5) 8.1 g/dL (12.0-15.5) 7.5 g/dL (12.0-15.5) Hematocrit 26.1 % (36.0-47.0) 27.0 % (36.0-47.0) 25.3 % (36.0-47.0) Mean Corpuscular Volume 63 fL (79-100) 65 fL (79-100) Mean Corpuscular Hemoglobin 18 pg (25-35) 19 pg (25-35) Mean Corpuscular Hemoglobin Concent 29 g/dL (31-37) 30 g/dL (31-37) 30 g/dL (31-37) Red Cell Distribution Width 17.4 % (11.5-14.5) 19.7 % (11.5-14.5) Platelet Count 339 x10^3/uL (140-400) 273 x10^3/uL (140-400) Neutrophils (%) (Auto) 70 % (31-73) Lymphocytes (%) (Auto) 22 % (24-48) Monocytes (%) (Auto) 5 % (0-9) Eosinophils (%) (Auto) 2 % (0-3) Basophils (%) (Auto) 1 % (0-3) Neutrophils # (Auto) 6.7 x10^3/uL (1.8-7.7) Lymphocytes # (Auto) 2.1 x10^3/uL (1.0-4.8) Monocytes # (Auto) 0.5 x10^3/uL (0.0-1.1) Eosinophils # (Auto) 0.2 x10^3/uL (0.0-0.7) Basophils # (Auto) 0.1 x10^3/uL (0.0-0.2) Platelet Estimate Adequate (ADEQUATE) Polychromasia Slight Hypochromasia Marked Anisocytosis Slight Microcytosis Marked Sodium Level 142 mmol/L (136-145) 143 mmol/L (136-145) Potassium Level 3.3 mmol/L (3.5-5.1) 3.6 mmol/L (3.5-5.1) 3.4 mmol/L (3.5-5.1) Chloride Level 105 mmol/L (98-107) 108 mmol/L (98-107) Carbon Dioxide Level 27 mmol/L (21-32) 26 mmol/L (21-32) Anion Gap 10 (6-14) 9 (6-14) Blood Urea Nitrogen 6 mg/dL (7-20) 8 mg/dL (7-20) Creatinine 0.7 mg/dL (0.6-1.0) 0.7 mg/dL (0.6-1.0) Estimated GFR (Cockcroft-Gault) 121.5 121.5 BUN/Creatinine Ratio 9 (6-20) Glucose Level 77 mg/dL (70-99) 86 mg/dL (70-99) Calcium Level 8.8 mg/dL (8.5-10.1) 8.3 mg/dL (8.5-10.1) Magnesium Level 1.9 mg/dL (1.8-2.4) Iron Level 9 ug/dL (50-170) 398 ug/dL (50-170) Total Iron Binding Capacity 458 ug/dL (250-450) 408 ug/dL (250-450) Iron Saturation 2 % (15-34) 98 % (15-34) Total Bilirubin 0.4 mg/dL (0.2-1.0) Aspartate Amino Transf (AST/SGOT) 12 U/L (15-37) Alanine Aminotransferase (ALT/SGPT) 12 U/L (14-59) Alkaline Phosphatase 47 U/L (46-116) Creatine Kinase 75 U/L (26-192) Creatine Kinase MB (Mass) < 0.5 ng/mL (0.0-3.6) Creatine Kinase MB Relative Index % (0-4) Troponin I Quantitative < 0.017 ng/mL (0.000-0.055) Total Protein 8.0 g/dL (6.4-8.2) Albumin 3.7 g/dL (3.4-5.0) Albumin/Globulin Ratio 0.9 (1.0-1.7) Urine Collection Type Unknown Urine Color Yellow Urine Clarity Clear Urine pH 5.5 Urine Specific [place] 1.020 Urine Protein Negative mg/dL (NEG-TRACE) Urine Glucose (UA) Negative mg/dL (NEG) Urine Ketones (Stick) Negative mg/dL (NEG) Urine Blood Negative (NEG) Urine Nitrite Negative (NEG) Urine Bilirubin Negative (NEG) Urine Urobilinogen Dipstick 0.2 mg/dL (0.2 mg/dL) Urine Leukocyte Esterase Negative (NEG) Urine RBC 0 /HPF (0-2) Urine WBC 1-4 /HPF (0-4) Urine Squamous Epithelial Cells Mod /LPF Urine Bacteria Few /HPF (0-FEW) Urine Mucus Mod /LPF Urine Test Negative (NEG) Urine Opiates Screen Neg (NEG) Urine Methadone Screen Neg (NEG) Urine Barbiturates Neg (NEG) Urine Phencyclidine Screen Neg (NEG) Urine Amphetamine/Methamphetamine Neg (NEG) Urine Benzodiazepines Screen Neg (NEG) Urine Cocaine Screen Neg (NEG) Urine Cannabinoids Screen Pos (NEG) Urine Ethyl Alcohol Neg (NEG) Absolute Reticulocyte Count 0.065 x10^6/uL (0.020-0.120) Percent Reticulocyte Count 1.5 % (0.5-2.3) Immature Reticulocyte Fraction 0.48 (0.20-0.60) Ferritin 5 ng/mL (8-252) Vitamin B12 Level 221 pg/mL (247-911) Laboratory Tests Test 09/23/19 04:15 White Blood Count 7.2 x10^3/uL (4.0-11.0) Red Blood Count 3.91 x10^6/uL (3.50-5.40) Hemoglobin 7.5 g/dL (12.0-15.5) Hematocrit 25.3 % (36.0-47.0) Mean Corpuscular Volume 65 fL (79-100) Mean Corpuscular Hemoglobin 19 pg (25-35) Mean Corpuscular Hemoglobin Concent 30 g/dL (31-37) Red Cell Distribution Width 19.7 % (11.5-14.5) Platelet Count 273 x10^3/uL (140-400) Sodium Level 143 mmol/L (136-145) Potassium Level 3.4 mmol/L (3.5-5.1) Chloride Level 108 mmol/L (98-107) Carbon Dioxide Level 26 mmol/L (21-32) Anion Gap 9 (6-14) Blood Urea Nitrogen 8 mg/dL (7-20) Creatinine 0.7 mg/dL (0.6-1.0) Estimated GFR (Cockcroft-Gault) 121.5 Glucose Level 86 mg/dL (70-99) Calcium Level 8.3 mg/dL (8.5-10.1) Iron Level 398 ug/dL (50-170) Total Iron Binding Capacity 408 ug/dL (250-450) Iron Saturation 98 % (15-34) Medications Current Medications Potassium Chloride (Klor-Con) 40 meq 1X ONCE PO Last administered on 09/21/19at 17:02; Start 09/21/19 at 16:45; Stop 09/21/19 at 16:46; Status DC Ferrous Sulfate (Feosol) 325 mg DAILYWBKFT PO ; Start 09/22/19 at 08:00 Ondansetron HCl (Zofran) 4 mg PRN Q6HRS PRN IVP NAUSEA/VOMITING Last administered on 09/22/19 17:36; Start 09/21/19 at 17:45 Acetaminophen/ Codeine Phosphate (Tylenol #3) 1 tab PRN Q6HRS PRN PO MILD - MODERATE PAIN Last administered on 09/22/19 08:43; Start 09/21/19 at 17:45 Zolpidem Tartrate (Ambien) 5 mg PRN QHS PRN PO INSOMNIA; Start 09/21/19 at 17:45 Calcium Carbonate/ Glycine (Tums) 500 mg PRN AFTMEALHC PRN PO INDIGESTION; Start 09/21/19 at 17:45 Iron Sucrose 500 mg/Sodium Chloride 275 ml @ 78.571 mls/ hr 1X ONCE IV Last administered on 09/22/19 13:38; Start 09/22/19 at 09:30; Stop 09/22/19 at 12:59; Status DC Lidocaine (Lidoderm) 1 patch DAILY TD Last administered on 09/22/19 09:15; Start 09/22/19 at 09:15 Miscellaneous (Lidoderm Patch Removal) 1 ea QHS MC Last administered on 09/22/19at 20:41; Start 09/22/19 at 21:00 Ketorolac Tromethamine (Toradol 15mg Vial) 15 mg 1X ONCE IVP Last administered on 09/22/19 13:29; Start 09/22/19 at 09:15; Stop 09/22/19 at 09:16; Status DC Sodium Chloride 1,000 ml @ 100 mls/hr 1X ONCE IV Last administered on 09/22/19at 13:27; Start 09/22/19 at 09:15; Stop 09/22/19 at 19:14; Status DC Oxycodone/ Acetaminophen (Percocet 5/325) 1 tab PRN Q4HRS PRN PO SEVERE PAIN Last administered on 09/22/19at 23:46; Start 09/22/19 at 09:30 Cyanocobalamin (Vitamin B-12) 1,000 mcg DAILY IM Last administered on 09/22/19at 17:42; Start 09/22/19 at 12:45; Stop 09/26/19 at 09:00 Morphine Sulfate (Morphine Sulfate) 2 mg PRN Q2HR PRN IV SEVERE PAIN 7-10 Last administered on 09/22/19at 20:47; Start 09/22/19 at 20:45 Potassium Chloride (Klor-Con) 40 meq 1X ONCE PO ; Start 09/23/19 at 07:45; Stop 09/23/19 at 07:46; Status DC Active Scripts Active Cephalexin 500 Mg Capsule 1 Cap PO BID 10 Days Medrol (Methylprednisolone) 4 Mg Tab.ds.pk 1 Pkg PO UD Amoxicillin 500 Mg Tablet 1 Tab PO BID Proair Hfa (Albuterol Sulfate) 8.5 Gm Hfa.aer.ad 1 Puff INH PRN Q6HRS PRN Prednisone 50 Mg Tablet 1 Tab PO DAILY Promethazine-Codeine Syrup (Promethazine Hcl/Codeine) 118 Ml Syrup 5 Ml PO Q4- 6HRS Zithromax (Azithromycin) 250 Mg Tablet 1 Pkg PO UD Ibuprofen 600 Mg Tablet 600 Mg PO PRN Q6HRS PRN Vitals/I & O Vital Sign - Last 24 Hours 09/22/19 09/22/19 09/22/19 09/22/19 09:43 10:38 15:00 19:52 Temp 98.2 98.2 98.7 98.2 98.2 98.7 Pulse 67 65 58 Resp 16 18 18 20 B/P (MAP) 122/80 (94) 124/78 (93) 118/77 (91) Pulse Ox 100 100 100 O2 Delivery Room Air Room Air 09/22/19 09/22/19 09/23/19 09/23/19 20:00 23:00 03:00 07:00 Temp 98.6 97.8 98.1 98.6 97.8 98.1 Pulse 61 56 60 Resp 18 18 14 B/P (MAP) 128/82 (97) 115/80 (92) 110/66 (81) Pulse Ox 98 100 100 O2 Delivery Room Air Room Air Intake and Output 09/22/19 09/22/19 09/23/19 15:00 23:00 07:00 Intake Total 600 ml 1240 ml Balance 600 ml 1240 ml INOCENCIO LOREDO MD Sep 23, 2019 09:08
--- NOTE | 2019-09-23 10:52 | PDOC3 ---
Discharge Summary Visit Information Date of Admission: Sep 21, 2019 Date of Discharge: Sep 23, 2019 Final Diagnosis Problems Medical Problems: (1) Anemia Status: Acute (2) Hypokalemia Status: Acute (3) Syncope Status: Acute Brief Hospital Course Allergies Allergies Coded Allergies Type Severity Reaction Last Updated Verified ciprofloxacin Allergy Severe Anaphylaxis 07/23/16 Yes Vital Signs Vital Signs Date Time Temp Pulse Resp B/P (MAP) Pulse Ox O2 Delivery O2 Flow Rate FiO2 09/23/19 07:00 98.1 60 14 110/66 (81) 100 Room Air 98.1 Lab Results Laboratory Tests Test 09/21/19 15:16 09/21/19 15:24 09/22/19 03:30 09/23/19 04:15 White Blood Count 9.5 x10^3/uL (4.0-11.0) 7.2 x10^3/uL (4.0-11.0) Red Blood Count 4.18 x10^6/uL (3.50-5.40) 4.24 x10^6/uL (3.50-5.70) 3.91 x10^6/uL (3.50-5.40) Hemoglobin 7.6 g/dL (12.0-15.5) 8.1 g/dL (12.0-15.5) 7.5 g/dL (12.0-15.5) Hematocrit 26.1 % (36.0-47.0) 27.0 % (36.0-47.0) 25.3 % (36.0-47.0) Mean Corpuscular Volume 63 fL (79-100) 65 fL (79-100) Mean Corpuscular Hemoglobin 18 pg (25-35) 19 pg (25-35) Mean Corpuscular Hemoglobin Concent 29 g/dL (31-37) 30 g/dL (31-37) 30 g/dL (31-37) Red Cell Distribution Width 17.4 % (11.5-14.5) 19.7 % (11.5-14.5) Platelet Count 339 x10^3/uL (140-400) 273 x10^3/uL (140-400) Neutrophils (%) (Auto) 70 % (31-73) Lymphocytes (%) (Auto) 22 % (24-48) Monocytes (%) (Auto) 5 % (0-9) Eosinophils (%) (Auto) 2 % (0-3) Basophils (%) (Auto) 1 % (0-3) Neutrophils # (Auto) 6.7 x10^3/uL (1.8-7.7) Lymphocytes # (Auto) 2.1 x10^3/uL (1.0-4.8) Monocytes # (Auto) 0.5 x10^3/uL (0.0-1.1) Eosinophils # (Auto) 0.2 x10^3/uL (0.0-0.7) Basophils # (Auto) 0.1 x10^3/uL (0.0-0.2) Platelet Estimate Adequate (ADEQUATE) Polychromasia Slight Hypochromasia Marked Anisocytosis Slight Microcytosis Marked Sodium Level 142 mmol/L (136-145) 143 mmol/L (136-145) Potassium Level 3.3 mmol/L (3.5-5.1) 3.6 mmol/L (3.5-5.1) 3.4 mmol/L (3.5-5.1) Chloride Level 105 mmol/L (98-107) 108 mmol/L (98-107) Carbon Dioxide Level 27 mmol/L (21-32) 26 mmol/L (21-32) Anion Gap 10 (6-14) 9 (6-14) Blood Urea Nitrogen 6 mg/dL (7-20) 8 mg/dL (7-20) Creatinine 0.7 mg/dL (0.6-1.0) 0.7 mg/dL (0.6-1.0) Estimated GFR (Cockcroft-Gault) 121.5 121.5 BUN/Creatinine Ratio 9 (6-20) Glucose Level 77 mg/dL (70-99) 86 mg/dL (70-99) Calcium Level 8.8 mg/dL (8.5-10.1) 8.3 mg/dL (8.5-10.1) Magnesium Level 1.9 mg/dL (1.8-2.4) Iron Level 9 ug/dL (50-170) 398 ug/dL (50-170) Total Iron Binding Capacity 458 ug/dL (250-450) 408 ug/dL (250-450) Iron Saturation 2 % (15-34) 98 % (15-34) Total Bilirubin 0.4 mg/dL (0.2-1.0) Aspartate Amino Transf (AST/SGOT) 12 U/L (15-37) Alanine Aminotransferase (ALT/SGPT) 12 U/L (14-59) Alkaline Phosphatase 47 U/L (46-116) Creatine Kinase 75 U/L (26-192) Creatine Kinase MB (Mass) < 0.5 ng/mL (0.0-3.6) Creatine Kinase MB Relative Index % (0-4) Troponin I Quantitative < 0.017 ng/mL (0.000-0.055) Total Protein 8.0 g/dL (6.4-8.2) Albumin 3.7 g/dL (3.4-5.0) Albumin/Globulin Ratio 0.9 (1.0-1.7) Urine Collection Type Unknown Urine Color Yellow Urine Clarity Clear Urine pH 5.5 Urine Specific [place] 1.020 Urine Protein Negative mg/dL (NEG-TRACE) Urine Glucose (UA) Negative mg/dL (NEG) Urine Ketones (Stick) Negative mg/dL (NEG) Urine Blood Negative (NEG) Urine Nitrite Negative (NEG) Urine Bilirubin Negative (NEG) Urine Urobilinogen Dipstick 0.2 mg/dL (0.2 mg/dL) Urine Leukocyte Esterase Negative (NEG) Urine RBC 0 /HPF (0-2) Urine WBC 1-4 /HPF (0-4) Urine Squamous Epithelial Cells Mod /LPF Urine Bacteria Few /HPF (0-FEW) Urine Mucus Mod /LPF Urine Test Negative (NEG) Urine Opiates Screen Neg (NEG) Urine Methadone Screen Neg (NEG) Urine Barbiturates Neg (NEG) Urine Phencyclidine Screen Neg (NEG) Urine Amphetamine/Methamphetamine Neg (NEG) Urine Benzodiazepines Screen Neg (NEG) Urine Cocaine Screen Neg (NEG) Urine Cannabinoids Screen Pos (NEG) Urine Ethyl Alcohol Neg (NEG) Absolute Reticulocyte Count 0.065 x10^6/uL (0.020-0.120) Percent Reticulocyte Count 1.5 % (0.5-2.3) Immature Reticulocyte Fraction 0.48 (0.20-0.60) Ferritin 5 ng/mL (8-252) Vitamin B12 Level 221 pg/mL (247-911) Laboratory Tests Test 09/23/19 04:15 White Blood Count 7.2 x10^3/uL (4.0-11.0) Red Blood Count 3.91 x10^6/uL (3.50-5.40) Hemoglobin 7.5 g/dL (12.0-15.5) Hematocrit 25.3 % (36.0-47.0) Mean Corpuscular Volume 65 fL (79-100) Mean Corpuscular Hemoglobin 19 pg (25-35) Mean Corpuscular Hemoglobin Concent 30 g/dL (31-37) Red Cell Distribution Width 19.7 % (11.5-14.5) Platelet Count 273 x10^3/uL (140-400) Sodium Level 143 mmol/L (136-145) Potassium Level 3.4 mmol/L (3.5-5.1) Chloride Level 108 mmol/L (98-107) Carbon Dioxide Level 26 mmol/L (21-32) Anion Gap 9 (6-14) Blood Urea Nitrogen 8 mg/dL (7-20) Creatinine 0.7 mg/dL (0.6-1.0) Estimated GFR (Cockcroft-Gault) 121.5 Glucose Level 86 mg/dL (70-99) Calcium Level 8.3 mg/dL (8.5-10.1) Iron Level 398 ug/dL (50-170) Total Iron Binding Capacity 408 ug/dL (250-450) Iron Saturation 98 % (15-34) Brief Hospital Course Ms. Rodriguez is a 29 old AA female who came in for symptomatic anemia and had MARK indices, She did have menorrhagia 2 periods ago but none now, SHe had a neg work up sickle cell yrs back in [facility] but mentions concerns for thalassemia, I conuslted heme onc, gave venofer, HGb on dc 7,5 Echo normal: <Conclusion> The left ventricle is normal size. The left ventricular systolic function is normal and the ejection fraction is within normal range. The Ejection Fraction is 55-60%. There is no significant aortic valvular stenosis. Doppler and Color Flow revealed no significant aortic regurgitation. Doppler and Color Flow revealed no mitral valve regurgitation noted. Doppler and Color Flow revealed mild tricuspid regurgitation with an estimated PAP of 36 mmHg. HEme on thinks more of MARK cause rather than thalassemia? BUt electrophoresis results can be ff up as OP with heme onc as it takes time SOme back pain 1 day Prior to dc, better with nsaid and patch HOme today independent with CBC 2 weeks and instructions to ff up heme onc I gave ferrous sulfate rX I DID NOT GIVE provera as for the last 2 mos her periods have been normal dc 34 Discharge Information Condition at Discharge: Improved, Stable Follow Up: Weeks (dr mckeon 2 weeks) Disposition/Orders: D/C to Home Scheduled Amoxicillin (Amoxicillin) 500 Mg Tablet, 1 TAB PO BID, #20 Prescribed by: AYDEE LOYA APRN on 07/23/192203 Azithromycin (Zithromax) 250 Mg Tablet, 1 PKG PO UD for bronchitis, #1 Prescribed by: SHANELL GONSALEZ APRN on 01/18/191901 Cephalexin (Cephalexin) 500 Mg Capsule, 1 CAP PO BID for 10 Days, #20 Prescribed by: MIGUEL VÁZQUEZ APRN on 08/23/19 184 Methylprednisolone (Medrol) 4 Mg Tab.ds.pk, 1 PKG PO UD, #1 Prescribed by: AYDEE LOYA APRN on 07/23/192203 Prednisone (Prednisone) 50 Mg Tablet, 1 TAB PO DAILY for bronchitis, #5 Prescribed by: SHANELL GONSALEZ APRN on 01/18/191901 Promethazine Hcl/Codeine (Promethazine-Codeine Syrup) 118 Ml Syrup, 5 ML PO Q4- 6HRS for cough, #120 Prescribed by: SHANELL GONSALEZ APRN on 01/18/191901 Scheduled PRN Albuterol Sulfate (Proair Hfa) 8.5 Gm Hfa.aer.ad, 1 PUFF INH PRN Q6HRS PRN for SHORTNESS OF BREATH, #1 Prescribed by: SHANELL GONSALEZ APRN on 01/18/191901 Ibuprofen (Ibuprofen) 600 Mg Tablet, 600 MG PO PRN Q6HRS PRN for PAIN, #20 Prescribed by: ROSALEE MORGAN MD on 12/26/17616 DU CAVAZOS MD Sep 23, 2019 10:52
[2019-09-23 11:00] VITALS: BP 129/80
--- NOTE | 2019-09-23 11:21 | NUR ---
Am meds: went to give pt meds, she continued to sleep. Went back to pt's room at approx 1100, let pt know she will be d/c today, pt stated she will go to as she is not getting answers other than what she has been getting for the last 19 years. Pt wanted to use the restroom before taking meds. Will check with pt after she is finished in the restroom.
[2019-09-23] MEDS: FERROUS SULFATE 325 MG TABLET. PO SCH (11:32)
[2019-09-23] MEDS: LIDOCAINE (700MG/PATCH) PATCH. TD SCH (11:32)
[2019-09-23] MEDS: CYANOCOBALAMIN (VITAMIN B-12) 1,000 MCG/ML VIAL IM SCH (11:34)
--- NOTE | 2019-09-23 16:15 | NUR ---
Discharge Note: GUSTAVO WHITMAN [address] Discharge instructions and discharge home medications reviewed with Patient and a copy given. All questions have been answered and understanding verbalized. The following instructions and handouts were given: patient visit report, medication information, education. Discontinued lines and drains: peripheral IV, tip intact. Patient discharged to home with self care via private vehicle. Patient left unit awake, in stable condition with all personal belongings.
[2019-09-24 14:10] LABS: HGB ELECROPHORESIS COMMENT Note: (.)
== END 2019-09-23 14:45 | disposition home or self-care (01) | DRG 761 ==
LOC: ER 13:55 → 5 SOUTH 17:10
PROVIDERS: ADMIT Internal Medicine; ATTEND Internal Medicine
PROC: 30233N1 Transfusion of Nonautologous Red Blood Cells into Peripheral Vein, Percutaneous Approach (ICD-10-PCS; principal; 2019-09-21)
DX: N92.0 Excessive and frequent menstruation with regular cycle (principal); D50.0 Iron deficiency anemia secondary to blood loss (chronic); E66.9 Obesity, unspecified; R35.0 Frequency of micturition; I07.1 Rheumatic tricuspid insufficiency; E87.6 Hypokalemia; Z87.442 Personal history of urinary calculi; Z88.1 Allergy status to other antibiotic agents; Z98.51 Tubal ligation status; Z68.31 Body mass index [BMI] 31.0-31.9, adult; Z79.899 Other long term (current) drug therapy
CPT/HCPCS: 36415; 80048; 80053; 80307; 81001; 81025; 82553; 82607; 82728; 83020; 83540; 83550; 83735; 84132; 84484; 85014; 85018; 85025; 85027; 85045; 86850; 86900; 86901; 86920; 93005; 93306; J1756; J1885; J2270; J2405; J3420; J7030; J7050; P9016; 99285-25; G0378

== ENCOUNTER 2019-12-08 22:54 | Emergency (ER) | payer SELFPAY ==
[~2019-12-08] VITALS: Ht 157.5 cm; Wt 74.8 kg
[2019-12-08 23:20] VITALS: BP 118/57
[2019-12-09] MEDS: diazePAM 5 MG TABLET PO ONE (00:01)
[2019-12-09] MEDS: HYDROcodone/APAP 5/325MG 1 TAB TABLET PO ONE (00:01)
[2019-12-09] MEDS: predniSONE 10 MG TABLET PO ONE (00:01)
[2019-12-09] MEDS: NAPROXEN 500 MG TABLET PO ONE (00:01)
[2019-12-09 00:28] LABS: BILIRUBIN,URINE SMALL (NEG); CLARITY,URINE CLOUDY; COLOR,URINE YELLOW; NITRITE,URINE NEGATIVE (NEG); PROTEIN,URINE NEGATIVE (NEG-TRACE)
[2019-12-09 00:48] LABS: BACTERIA,URINE FEW /HPF (0-FEW); RBC,URINE OCC /HPF (0-2); SQUAMOUS EPITHELIAL CELL,UR MOD /LPF; WBC,URINE TNTC /HPF (0-4)
[2019-12-09] MEDS ORDERED: CYCL10TA2 PO (01:17)
[2019-12-09] MEDS ORDERED: CEPH500T PO (01:17)
[2019-12-09] MEDS ORDERED: HYDR-3164 PO (01:17)
[2019-12-09] MEDS ORDERED: NAPR-514 PO (01:17)
--- NOTE | 2019-12-09 01:18 | PHYS DOC ---
Past Medical History Past Medical History: Anemia, Kidney Stone Additional Past Medical Histor: MULTIPLE BLOOD TRANSFUSIONS PER PT. (JETT CHRISTY APRN) Past Surgical History: Tubal ligation, Other Additional Past Surgical Histo: d&c (JETT CHRISTY APRN) Alcohol Use: Rarely Drug Use: None (JETT CHRISTY APRN) Adult General Chief Complaint Chief Complaint: LOWER BACK PAIN OR INJURY HPI HPI Patient is a 29 year old female who presents to the ED today complaining of left lower back pain rated as moderate described as sharp and constant worse on sitting on the left side pain radiating to the left lower extremity, pain began sometime this evening when she was driving. Patient denies any loss of bowel/bladder function. Denies any numbness or tingling to bilateral lower extremities. (JETT CHRISTY APRN) Review of Systems Review of Systems Constitutional: Denies fever or chills [] Eyes: Denies change in visual acuity, redness, or eye pain [] HENT: Denies nasal congestion or sore throat [] Respiratory: Denies cough or shortness of breath [] Cardiovascular: No additional information not addressed in HPI [] GI: Denies abdominal pain, nausea, vomiting, bloody stools or diarrhea [] : Denies dysuria or hematuria [] Musculoskeletal: Reports left low back pain Integument: Denies rash or skin lesions [] Neurologic: Denies headache, focal weakness or sensory changes [] All other systems were reviewed and found to be within normal limits, except as documented in this note. (JETT CHRISTY APRN) Current Medications Current Medications Current Medications Medications (Trade) Dose Ordered Sig/[place]ver Start Time Stop Time Status Last Admin Dose Admin Acetaminophen/ Hydrocodone Bitart (Lortab 5/325) 2 tab 1X ONCE 12/08/19 23:55 12/08/19 23:56 DC 12/09/19 00:01 2 TAB Diazepam (Valium) 5 mg 1X ONCE 12/08/19 23:55 12/08/19 23:56 DC 12/09/19 00:01 5 MG Naproxen (Naprosyn) 500 mg 1X ONCE 12/08/19 23:55 12/08/19 23:56 DC 12/09/19 00:01 500 MG Prednisone (Prednisone) 50 mg 1X ONCE 12/08/19 23:55 12/08/19 23:56 DC 12/09/19 00:01 50 MG (SALINA GOODMAN DO) Allergies Allergies Allergies Coded Allergies Type Severity Reaction Last Updated Verified ciprofloxacin Allergy Severe Anaphylaxis 07/23/16 Yes (SALINA GOODMAN DO) Physical Exam Physical Exam Constitutional: Well developed, well nourished, no acute distress, non-toxic appearance. [] HENT: Normocephalic, atraumatic, bilateral external ears normal, oropharynx moist, no oral exudates, nose normal. [] Eyes: PERRLA, EOMI, conjunctiva normal, no discharge. [] Neck: Normal range of motion, no tenderness, supple, no stridor. [] Cardiovascular:Heart rate regular rhythm, no murmur [] Lungs & Thorax: Bilateral breath sounds clear to auscultation [] Abdomen: Bowel sounds normal, soft, no tenderness, no masses, no pulsatile masses. [] Skin: Warm, dry, no erythema, no rash. [] Back: No tenderness, no CVA tenderness. [] Extremities: No tenderness, no cyanosis, no clubbing, ROM intact, no edema. Negative Homans sign bilaterally. Neurologic: Alert and oriented X 3, normal motor function, normal sensory function, no focal deficits noted. [] Psychologic: Affect normal, judgement normal, mood normal. [] (JETT CHRISTY APRN) Current Patient Data Vital Signs Vital Signs Date Time Temp Pulse Resp B/P (MAP) Pulse Ox O2 Delivery O2 Flow Rate FiO2 12/09/19 00:01 22 98 Room Air 12/08/19 23:20 99.3 82 118/57 (77) 99.3 (SALINA GOODMAN DO) Lab Values Laboratory Tests Test 12/08/19 23:15 12/08/19 23:29 Urine Collection Type Unknown Urine Color Yellow Urine Clarity Cloudy Urine pH 6.0 Urine Specific [place] >=1.030 Urine Protein Negative mg/dL (NEG-TRACE) Urine Glucose (UA) Negative mg/dL (NEG) Urine Ketones (Stick) Trace mg/dL (NEG) Urine Blood Negative (NEG) Urine Nitrite Negative (NEG) Urine Bilirubin Small (NEG) Urine Urobilinogen Dipstick 1.0 mg/dL (0.2 mg/dL) Urine Leukocyte Esterase Large (NEG) Urine RBC Occ /HPF (0-2) Urine WBC Tntc /HPF (0-4) Urine Squamous Epithelial Cells Mod /LPF Urine Bacteria Few /HPF (0-FEW) Urine Mucus Mod /LPF POC Urine HCG, Qualitative Hcg negative (Negative) (SALINA GOODMAN DO) EKG EKG [] (JETT CHRISTY APRN) Radiology/Procedures Radiology/Procedures [] (JETT CHRISTY APRN) Course & Med Decision Making Course & Med Decision Making Pertinent Labs and Imaging studies reviewed. (See chart for details) This is a 29-year-old female patient presenting to the ED today with left low back pain radiating to the left lower extremity, symptoms began this evening. Urine analysis is positive for UTI. Back pain also consistent with sciatica. Discharged with cephalexin, something for pain and muscle relaxer. Follow-up with primary care doctor in 1-2 weeks. (JETT CHRISTY APRN) Dragon Disclaimer Dragon Disclaimer This electronic medical record was generated, in whole or in part, using a voice recognition dictation system. (JETT CHRISTY APRN) Departure Departure Impression: Primary Impression: Low back pain Additional Impressions: Sciatica, left side UTI (urinary tract infection) Disposition: HOME, SELF-CARE Condition: STABLE Referrals: NO PCP (PCP) follow up with your doctor in 1-2 weeks Patient Instructions: Back Pain, Adult, [id number], Sciatica with Rehab- [facility], Urinary Tract Infection Additional Instructions: You were evaluated in the emergency room for back pain with sciatica, you also have urinary tract infection, please complete the prescribed antibiotics. Take the rest of the medications as ordered. Follow-up with your own doctor in 1-2 weeks Scripts Cyclobenzaprine Hcl (CYCLOBENZAPRINE HCL) 10 Mg Tablet 1 TAB PO TID, #30 TAB Prov: JETT CHRISTY APRN 12/09/19 Naproxen (NAPROXEN) 500 Mg Tablet 1 TAB PO BID for pain for 30 Days, #20 TAB 0 Refills Prov: JETT CHRISTY APRN 12/09/19 Hydrocodone/Apap 5-325 (NORCO 5-325 TABLET) 1 Each Tablet 1 TAB PO Q6HRS, #20 TAB Prov: JETT CHRISTY APRN 12/09/19 Cephalexin (CEPHALEXIN) 500 Mg Tablet 1 TAB PO BID, #14 TAB Prov: JETT CHRISTY MATHEMATICS INSTRUCTOR 12/09/19 Attending Signature Attending Signature I have reviewed the PA/PROJECTS MANAGER's note and plan of care. I was available for consultation as needed at all times during the patient's visit in the emergency department. I agree with the clinical impression, plan and disposition. (SALINA GOODMAN DO) Problem Qualifiers Primary Impression: Low back pain Chronicity: acute Back pain laterality: left Sciatica presence: with sciatica Sciatica laterality: sciatica of left side Qualified Codes: M54.42 - Lumbago with sciatica, left side Additional Impressions: UTI (urinary tract infection) Urinary tract infection type: site unspecified Hematuria presence: without hematuria Qualified Codes: N39.0 - Urinary tract infection, site not specified JETT CHRISTY MATHEMATICS INSTRUCTOR Dec 09, 2019 01:17 SALINA GOODMAN DO Dec 10, 2019 19:24
== END 2019-12-09 02:27 | disposition home or self-care (01) ==
LOC: ER 22:54
DX: M54.42 Lumbago with sciatica, left side (principal); N39.0 Urinary tract infection, site not specified; J45.909 Unspecified asthma, uncomplicated; Z88.1 Allergy status to other antibiotic agents; Z87.442 Personal history of urinary calculi; Z98.51 Tubal ligation status; Z98.890 Other specified postprocedural states
CPT/HCPCS: 81001; 81025; 99284; J7512

== ENCOUNTER 2020-01-07 11:22 | Emergency (ER) | payer SELFPAY ==
[~2020-01-07] VITALS: Ht 157.5 cm; Wt 75.0 kg
[~2020-01-07 11:22] MED LIST changes: +CEPH500T PO; +CYCL10TA2 PO; +HYDR-3164 PO; +NAPR-514 PO
[2020-01-07 12:17] LABS: BILIRUBIN,URINE NEGATIVE (NEG); CLARITY,URINE CLEAR; COLOR,URINE YELLOW; NITRITE,URINE NEGATIVE (NEG); PH,URINE 5.5; PROTEIN,URINE NEGATIVE (NEG-TRACE)
--- NOTE | 2020-01-07 12:17 | RAD ---
PROCEDURE: SHOULDER 2+V LEFT STUDY DATE: 01/07/2020 CLINICAL INDICATION / HISTORY: Left shoulder pain after fall. TECHNIQUE: AP internal and external rotation views with a Y- view were obtained. COMPARISON: None FINDINGS: No fracture, dislocation or bone destruction is identified. There are no degenerative changes at the left AC joint. No calcifications are seen in relation to the rotator cuff insertion. IMPRESSION: No acute osseous abnormality Electronically signed by: Scott Jung MD (01/07/2020 12:14 PM) [facility]
[2020-01-07 12:21] LABS: BACTERIA,URINE 0 /HPF (0-FEW); RBC,URINE 0 /HPF (0-2); SQUAMOUS EPITHELIAL CELL,UR FEW /LPF
--- NOTE | 2020-01-07 12:24 | PHYS DOC ---
Past Medical History Past Medical History: Anemia, Kidney Stone Additional Past Medical Histor: MULTIPLE BLOOD TRANSFUSIONS PER PT., Syncope Past Surgical History: Tubal ligation, Other Additional Past Surgical Histo: d&c Smoking Status: Light Tobacco Smoker Additional Information: Pt. smokes marijuana recreationally Alcohol Use: Rarely Drug Use: None Adult General Chief Complaint Chief Complaint: SHOULDER INJURY HPI HPI Patient is a 30 year old female who presents with patient states she went out for a birthday green party last night and had one drink and came home and she remembers coming home but then woke up on the floor. She complains of left shoulder trapezius muscle pain into the shoulder blade. Patient rates her pain 8 out of 10. She does not know if she hit her head. She has a left neck trapezius muscle pain with movement. There is limited range of motion with her neck if she turns and looks to the right she feels pulling in the left neck into the shoulder. Patient states she also fell last 6 months has been having episodes where she will be driving and suddenly loses track of time and we'll figure off the road as her daughter told her to days ago this is what happened. Patient states she does not remember this. Patient states that this happens daily she does not remember what happens and does not know how long this usually lasts for. Patient states she never actually blacked out she just loses track of time or what she is doing. Patient has a history of anemia with needing blood transfusions.. Review of Systems Review of Systems Musculoskeletal: Denies back pain. Left neck and shoulder joint pain [] Neurologic: Syncopy. Denies headache, focal weakness or sensory changes [] All other systems were reviewed and found to be within normal limits, except as documented in this note. Current Medications Current Medications Current Medications Medications (Trade) Dose Ordered Sig/Elver Start Time Stop Time Status Last Admin Dose Admin Acetaminophen/ Hydrocodone Bitart (Lortab 5/325) 1 tab 1X ONCE 01/07/20 13:30 01/07/20 13:31 DC 01/07/20 13:05 1 TAB Orphenadrine Citrate (Norflex) 60 mg 1X ONCE 01/07/20 13:00 01/07/20 13:01 DC 01/07/20 13:05 60 MG Allergies Allergies Allergies Coded Allergies Type Severity Reaction Last Updated Verified ciprofloxacin Allergy Severe Anaphylaxis 07/23/16 Yes Physical Exam Physical Exam Constitutional: Well developed, well nourished, no acute distress, non-toxic appearance. [] HENT: Normocephalic, atraumatic, bilateral external ears normal, oropharynx mois t, no oral exudates, nose normal. [] Eyes: PERRLA, EOMI, conjunctiva normal, no discharge. [] Neck: Normal range of motion, no tenderness, supple, no stridor. [] Cardiovascular:Heart rate regular rhythm, no murmur [] Lungs & Thorax: Bilateral breath sounds clear to auscultation [] Abdomen: Bowel sounds normal, soft, no tenderness, no masses, no pulsatile masses. [] Skin: Warm, dry, no erythema, no rash. [] Back: No tenderness, no CVA tenderness. [] Extremities: Left shoulder trapezius tenderness, no cyanosis, no clubbing, Left shoulder ROM not intact, no edema. [] Neurologic: Alert and oriented X 3, normal motor function, normal sensory function, no focal deficits noted. [] Psychologic: Affect normal, judgement normal, mood normal. [] Current Patient Data Vital Signs Vital Signs Date Time Temp Pulse Resp B/P (MAP) Pulse Ox O2 Delivery O2 Flow Rate FiO2 01/07/20 13:05 20 01/07/20 11:29 98.4 78 137/83 (101) 98 Room Air 98.4 Lab Values Laboratory Tests Test 01/07/20 11:57 01/07/20 12:10 Urine Collection Type Unknown Urine Color Yellow Urine Clarity Clear Urine pH 5.5 Urine Specific [place] 1.020 Urine Protein Negative mg/dL (NEG-TRACE) Urine Glucose (UA) Negative mg/dL (NEG) Urine Ketones (Stick) Negative mg/dL (NEG) Urine Blood Negative (NEG) Urine Nitrite Negative (NEG) Urine Bilirubin Negative (NEG) Urine Urobilinogen Dipstick 1.0 mg/dL (0.2 mg/dL) Urine Leukocyte Esterase Trace (NEG) Urine RBC 0 /HPF (0-2) Urine WBC 1-4 /HPF (0-4) Urine Squamous Epithelial Cells Few /LPF Urine Bacteria 0 /HPF (0-FEW) Urine Opiates Screen Neg (NEG) Urine Methadone Screen Neg (NEG) Urine Barbiturates Neg (NEG) Urine Phencyclidine Screen Neg (NEG) Urine Amphetamine/Methamphetamine Neg (NEG) Urine Benzodiazepines Screen Neg (NEG) Urine Cocaine Screen Neg (NEG) Urine Cannabinoids Screen Pos (NEG) Urine Ethyl Alcohol Neg (NEG) White Blood Count 6.4 x10^3/uL (4.0-11.0) Red Blood Count 4.09 x10^6/uL (3.50-5.40) Hemoglobin 9.7 g/dL (12.0-15.5) L Hematocrit 30.7 % (36.0-47.0) L Mean Corpuscular Volume 75 fL (79-100) L Mean Corpuscular Hemoglobin 24 pg (25-35) L Mean Corpuscular Hemoglobin Concent 32 g/dL (31-37) Red Cell Distribution Width 17.8 % (11.5-14.5) H Platelet Count 292 x10^3/uL (140-400) Neutrophils (%) (Auto) 56 % (31-73) Lymphocytes (%) (Auto) 35 % (24-48) Monocytes (%) (Auto) 7 % (0-9) Eosinophils (%) (Auto) 2 % (0-3) Basophils (%) (Auto) 1 % (0-3) Neutrophils # (Auto) 3.6 x10^3/uL (1.8-7.7) Lymphocytes # (Auto) 2.2 x10^3/uL (1.0-4.8) Monocytes # (Auto) 0.4 x10^3/uL (0.0-1.1) Eosinophils # (Auto) 0.1 x10^3/uL (0.0-0.7) Basophils # (Auto) 0.0 x10^3/uL (0.0-0.2) Prothrombin Time 13.9 SEC (11.7-14.0) Prothrombin Time INR 1.1 (0.8-1.1) Sodium Level 145 mmol/L (136-145) Potassium Level 3.9 mmol/L (3.5-5.1) Chloride Level 107 mmol/L (98-107) Carbon Dioxide Level 28 mmol/L (21-32) Anion Gap 10 (6-14) Blood Urea Nitrogen 9 mg/dL (7-20) Creatinine 0.7 mg/dL (0.6-1.0) Estimated GFR (Cockcroft-Gault) 120.6 BUN/Creatinine Ratio 13 (6-20) Glucose Level 87 mg/dL (70-99) Lactic Acid Level 0.6 mmol/L (0.4-2.0) Calcium Level 9.5 mg/dL (8.5-10.1) Total Bilirubin 0.3 mg/dL (0.2-1.0) Aspartate Amino Transferase (AST) 16 U/L (15-37) Alanine Aminotransferase (ALT) 18 U/L (14-59) Alkaline Phosphatase 65 U/L (46-116) Troponin I Quantitative < 0.017 ng/mL (0.000-0.055) Total Protein 7.4 g/dL (6.4-8.2) Albumin 3.6 g/dL (3.4-5.0) Albumin/Globulin Ratio 0.9 (1.0-1.7) L Laboratory Tests 01/07/20 12:10 Laboratory Tests 01/07/20 12:10 EKG EKG Sinus rhythm and no STEMI[] Interpretation Time: [address] Gilbert Radiology/Procedures Radiology/Procedures [] Impressions: [facility] [address] [place] [address] IMAGING REPORT Signed PATIENT: GUSTAVO WHITMANCOUNT: [id number] : 1990 LOCATION: ER AGE: 30 SEX: F EXAM STATUS: REG ER ORD. PHYSICIAN: AYDEE LOYA APRN REASON: FALL, PAIN, SYNCOPAL EPISODE PROCEDURE: CT HEAD AND CERVICAL SPINE WO EXAM: Head and cervical spine CT without contrast. HISTORY: Syncope. TECHNIQUE: Computed tomographic images of the head and cervical spine were obtained without contrast. *One or more of the following individualized dose reduction techniques were utilized for this examination: 1. Automated exposure control. 2. Adjustment of the mA and/or kV according to patient size. 3. Use of iterative reconstruction technique. COMPARISON: None. FINDINGS: Head: There is no hemorrhage. There is no mass effect or midline shift. There is no hydrocephalus. The morales-white matter differentiation pattern is intact. The orbits and visualized paranasal sinuses mastoid air cells are unremarkable. There is no calvarial lesion. Cervical spine: There is no listhesis. The vertebral magana are normal in height and the disc spaces are preserved. There is no suspicious osseous lesion. There is no fracture. There is no significant foraminal or central canal stenosis. IMPRESSION: No acute intracranial findings or evidence of acute cervical spine trauma. Electronically signed by: Hattie Lugo MD (01/07/2020 1:09 PM) [facility] [place]CTATED and SIGNED BY: HATTIE LUGO MD DATE: 01/07/20 1309 [facility] [address] [place] [address] IMAGING REPORT Signed PATIENT: GUSTAVO WHITMAN MACCOUNT: [id number] : 1990 LOCATION: ER AGE: 30 SEX: F EXAM STATUS: PRE ER ORD. PHYSICIAN: AYDEE LOYA APRN REASON: BLACKED OUT FALL, PAIN PROCEDURE: SHOULDER 2+V LEFT PROCEDURE: SHOULDER 2+V LEFT STUDY DATE: 01/07/2020 CLINICAL INDICATION / HISTORY: Left shoulder pain after fall. TECHNIQUE: AP internal and external rotation views with a Y- view were obtained. COMPARISON: None FINDINGS: No fracture, dislocation or bone destruction is identified. There are no degenerative changes at the left AC joint. No calcifications are seen in relation to the rotator cuff insertion. IMPRESSION: No acute osseous abnormality Electronically signed by: Chary Jung MD (01/07/2020 12:14 PM) [facility] DICTATED and SIGNED BY: CHARY JUNG MD DATE: 01/07/20 1214 Course & Med Decision Making Course & Med Decision Making Alert and oriented. Speaks in full clear sentences. Ambulatory with steady gait. Skin pink warm and dry. Since within normal limits. Patient left shoulder has limited range of motion due to pain and tightness in the trapezius muscle she gets to have pain and feels the pulling of the muscle. There is no knots but there is tenderness along the trapezius muscle and into the shoulder blade area. No deformities or bruising. Patient does not know whether she hit her head but denies any head pain, dizziness, visual changes, numbness or tingling, nausea, vomiting, weakness, abdominal pain, back pain. No focal bony spiny pain with palpation. Moves all extremities equally. PERRLA. Blood work unremarkable. X-ray show no acute finding. CT of the head and C-spine show no acute findings. I have spoken to Dr Gilbert about this patient and she states that since these syncopal episodes have been going on for 6 months, the patient can be discharged home and needs to follow up with her primary care as soon as possible. She is instructed not to drive or work heavy machinery until doing so. Dragon Disclaimer Dragon Disclaimer This electronic medical record was generated, in whole or in part, using a voice recognition dictation system. Departure Departure Impression: Primary Impression: Muscle strain Additional Impressions: Contusion Syncopal episodes Disposition: HOME, SELF-CARE Condition: STABLE Referrals: NO PCP (PCP) Patient Instructions: Contusion, [id number], Muscle Strain, Syncope, [id number] Additional Instructions: Follow-up with a primary care physician as soon as possible. Do not drive or operate heavy machinery until you do so as it is unsafe. Scripts Ibuprofen (IBUPROFEN) 600 Mg Tablet 600 MG PO PRN Q6HRS PRN for INFLAMMATION, #20 TAB Prov: AYDEE LOYA APRN 01/07/20 Orphenadrine Citrate (ORPHENADRINE CITRATE) 100 Mg Tablet.er 1 TAB PO BID, #14 TAB Prov: AYDEE LOYA APRN 01/07/20 Problem Qualifiers Additional Impressions: Contusion Encounter type: initial encounter Contusion area: shoulder Laterality: right Qualified Codes: S40.011A - Contusion of right shoulder, initial enc ounter Syncopal episodes Syncope type: unspecified Qualified Codes: R55 - Syncope and collapse AYDEE LOYA APRN Jan 07, 2020 12:23
[2020-01-07 12:37] LABS: BASO % 1 % (0-3); EOS # 0.1 x10^3/uL (0.0-0.7); EOS % 2 % (0-3); HEMATOCRIT 30.7 % (36.0-47.0); HEMOGLOBIN 9.7 g/dL (12.0-15.5); LYMPH # 2.2 x10^3/uL (1.0-4.8); LYMPH % 35 % (24-48); MEAN CORPUSCULAR HEMOGLOBIN 24 pg (25-35); MEAN CORPUSCULAR HGB CONC 32 g/dL (31-37); MEAN CORPUSCULAR VOLUME 75 fL (79-100); MONO # 0.4 x10^3/uL (0.0-1.1); MONO % 7 % (0-9); NEUT # 3.6 x10^3/uL (1.8-7.7); NEUT % 56 % (31-73); PLATELET COUNT 292 x10^3/uL (140-400); RED BLOOD COUNT 4.09 x10^6/uL (3.50-5.40); RED CELL DISTRIBUTION WIDTH 17.8 % (11.5-14.5); WHITE BLOOD COUNT 6.4 x10^3/uL (4.0-11.0)
[2020-01-07 12:44] LABS: PROTHROMBIN TIME PATIENT 13.9 SEC (11.7-14.0)
[2020-01-07 12:49] LABS: BARBITURATES NEG (NEG); BENZODIAZEPINES NEG (NEG); CANNABINOIDS POS (NEG); COCAINE NEG (NEG); METHADONE NEG (NEG); OPIATES NEG (NEG); PHENCYCLIDINE NEG (NEG)
[2020-01-07] MEDS ORDERED: ORPHENADRINE CITRATE 60 MG/2 ML VIAL. IM ONE (13:00)
[2020-01-07 13:01] LABS: AMPHETAMINE/METHAMPHETAMINE NEG (NEG)
[2020-01-07 13:02] LABS: CALCIUM 9.5 mg/dL (8.5-10.1); CREATININE 0.7 mg/dL (0.6-1.0); GFR 120.6; POTASSIUM 3.9 mmol/L (3.5-5.1)
[2020-01-07 13:07] LABS: ALBUMIN 3.6 g/dL (3.4-5.0); ALBUMIN/GLOBULIN RATIO 0.9 (1.0-1.7); TOTAL BILIRUBIN 0.3 mg/dL (0.2-1.0); TOTAL PROTEIN 7.4 g/dL (6.4-8.2)
--- NOTE | 2020-01-07 13:12 | RAD ---
EXAM: Head and cervical spine CT without contrast. HISTORY: Syncope. TECHNIQUE: Computed tomographic images of the head and cervical spine were obtained without contrast. *One or more of the following individualized dose reduction techniques were utilized for this examination: 1. Automated exposure control. 2. Adjustment of the mA and/or kV according to patient size. 3. Use of iterative reconstruction technique. COMPARISON: None. FINDINGS: Head: There is no hemorrhage. There is no mass effect or midline shift. There is no hydrocephalus. The morales-white matter differentiation pattern is intact. The orbits and visualized paranasal sinuses mastoid air cells are unremarkable. There is no calvarial lesion. Cervical spine: There is no listhesis. The vertebral magana are normal in height and the disc spaces are preserved. There is no suspicious osseous lesion. There is no fracture. There is no significant foraminal or central canal stenosis. IMPRESSION: No acute intracranial findings or evidence of acute cervical spine trauma. Electronically signed by: Hattie Arias MD (01/07/2020 1:09 PM) [facility] [place]
[2020-01-07] MEDS ORDERED: HYDROcodone/APAP 5/325MG 1 TAB TABLET PO ONE (13:30)
[2020-01-07] MEDS ORDERED: IBUP-1007 PO (14:14)
[2020-01-07] MEDS ORDERED: ORPH100T PO (14:14)
[2020-01-07 14:23] VITALS: BP 139/92
--- NOTE | 2020-01-07 14:54 | EKG ---
[facility] [address] [place] [address] Test Date: 2020-01-07 Test Time: 11:52:18 Pat Name: GUSTAVO WHITMAN Department: Room: Gender: F Mba Internship: : 1990 Requested By: AYDEE LOYA Order Number: [id number] Reading MD: Measurements Intervals [place] Rate: 55 P: 62 [place]: 154 QRS: 63 QRSD: 82 T: 37 QT: 392 QTc: 376 Interpretive Statements SINUS RHYTHM NORMAL ECG No previous ECG available for comparison
== END 2020-01-07 14:24 | disposition home or self-care (01) ==
LOC: ER 11:22
DX: S40.012A Contusion of left shoulder, initial encounter (principal); S16.1XXA Strain of muscle, fascia and tendon at neck level, initial encounter; R55 Syncope and collapse; F12.90 Cannabis use, unspecified, uncomplicated; F17.200 Nicotine dependence, unspecified, uncomplicated; Z87.442 Personal history of urinary calculi; Z98.51 Tubal ligation status; Z98.890 Other specified postprocedural states; Z88.1 Allergy status to other antibiotic agents; X58.XXXA Exposure to other specified factors, initial encounter; Y93.89 Activity, other specified; Y92.89 Other specified places as the place of occurrence of the external cause; Y99.8 Other external cause status
CPT/HCPCS: 36415; 70450; 72125; 73030; 80053; 80307; 81001; 83605; 84484; 85025; 85610; 87086; 93005; 96372; 99285; J2360

== ENCOUNTER 2020-06-10 03:31 | Emergency (ER) | payer SELFPAY ==
[~2020-06-10] VITALS: Ht 154.9 cm; Wt 78.2 kg
[~2020-06-10 03:31] MED LIST changes: +ORPH100T PO
[2020-06-10 04:09] LABS: BILIRUBIN,URINE NEGATIVE (NEG); CLARITY,URINE CLOUDY; COLOR,URINE YELLOW; NITRITE,URINE NEGATIVE (NEG); PROTEIN,URINE NEGATIVE (NEG-TRACE)
[2020-06-10] MEDS ORDERED: ONDANSETRON ODT 4 MG TAB.RAPDIS. PO ONE (04:15)
[2020-06-10 04:17] LABS: SQUAMOUS EPITHELIAL CELL,UR MANY /LPF
[2020-06-10 04:18] LABS: BACTERIA,URINE MODERATE /HPF (0-FEW); RBC,URINE 0 /HPF (0-2); YEAST,URINE PRESENT /HPF
[2020-06-10 04:34] LABS: BASO # 0.1 x10^3/uL (0.0-0.2); BASO % 1 % (0-3); EOS # 0.2 x10^3/uL (0.0-0.7); EOS % 2 % (0-3); HEMATOCRIT 25.1 % (36.0-47.0); HEMOGLOBIN 7.5 g/dL (12.0-15.5); LYMPH # 2.2 x10^3/uL (1.0-4.8); LYMPH % 24 % (24-48); MEAN CORPUSCULAR HEMOGLOBIN 19 pg (25-35); MEAN CORPUSCULAR HGB CONC 30 g/dL (31-37); MEAN CORPUSCULAR VOLUME 62 fL (79-100); MONO # 0.7 x10^3/uL (0.0-1.1); MONO % 8 % (0-9); NEUT % 66 % (31-73); PLATELET COUNT 365 x10^3/uL (140-400); RED BLOOD COUNT 4.03 x10^6/uL (3.50-5.40); WHITE BLOOD COUNT 9.2 x10^3/uL (4.0-11.0)
[2020-06-10 04:42] LABS: CALCIUM 8.8 mg/dL (8.5-10.1); CREATININE 0.9 mg/dL (0.6-1.0); GFR 90.2; POTASSIUM 3.4 mmol/L (3.5-5.1)
[2020-06-10 04:48] LABS: ALBUMIN 3.9 g/dL (3.4-5.0); ALBUMIN/GLOBULIN RATIO 0.9 (1.0-1.7); TOTAL BILIRUBIN 0.3 mg/dL (0.2-1.0); TOTAL PROTEIN 8.2 g/dL (6.4-8.2)
[2020-06-10] MEDS ORDERED: ONDA4TAB7 PO (04:54)
[2020-06-10] MEDS ORDERED: NITR100C62 PO (04:54)
--- NOTE | 2020-06-10 04:54 | PHYS DOC ---
Past Medical History Past Medical History: Anemia, Kidney Stone Additional Past Medical Histor: MULTIPLE BLOOD TRANSFUSIONS PER PT., Syncope Past Surgical History: Tubal ligation, Other Additional Past Surgical Histo: d&c Smoking Status: Light Tobacco Smoker Alcohol Use: Rarely Drug Use: None General Adult EDM: Chief Complaint: NAUSEA/VOMITING/DIARRHA HPI: HPI: 30-year-old female presents with a chief complaint of nausea vomiting. Patient states she has had nausea vomiting for the last 72 hours. She denies any associated diarrhea or abdominal discomfort. Patient also states she has had increased urinary frequency. Patient is requesting lab draw. States she has a history of anemia and had similar symptoms with a low hemoglobin. Review of Systems: Review of Systems: Constitutional: Denies fever or chills. [] Eyes: Denies change in visual acuity. [] HENT: Denies nasal congestion or sore throat. [] Respiratory: Denies cough or shortness of breath. [] Cardiovascular: Denies chest pain or edema. [] GI: Denies abdominal pain, positive nausea positive vomiting : Denies dysuria. [] Positive urinary frequency Musculoskeletal: Denies back pain or joint pain. [] Integument: Denies rash. [] Neurologic: Denies headache, focal weakness or sensory changes. [] Endocrine: Denies polyuria or polydipsia. [] Lymphatic: Denies swollen glands. [] Psychiatric: Denies depression or anxiety. [] Heart Score: Risk Factors: Risk Factors: DM, Current or recent (<one month) smoker, HTN, HLP, family history of CAD, obesity. Risk Scores: Score 0 - 3: 2.5% MACE over next 6 weeks - Discharge Home Score 4 - 6: 20.3% MACE over next 6 weeks - Admit for Clinical Observation Score 7 - 10: 72.7% MACE over next 6 weeks - Early Invasive Strategies Current Medications: Current Medications Medications (Trade) Dose Ordered Sig/Elver Start Time Stop Time Status Last Admin Dose Admin Ondansetron HCl (Zofran Odt) 4 mg 1X ONCE 06/10/20 04:15 06/10/20 04:26 DC 06/10/20 04:24 4 MG Allergies: Allergies: Allergies Coded Allergies Type Severity Reaction Last Updated Verified ciprofloxacin Allergy Severe Anaphylaxis 07/23/16 Yes Physical Exam: PE: Constitutional: Well developed, well nourished, no acute distress, non-toxic appearance. [] HENT: Normocephalic, atraumatic, bilateral external ears normal, oropharynx moist, no oral exudates, nose normal. [] Eyes: PERRLA, EOMI, conjunctiva normal, no discharge. [] Neck: Normal range of motion, no tenderness, supple, no stridor. [] Cardiovascular:Heart rate regular rhythm, no murmur [] Lungs & Thorax: Bilateral breath sounds clear to auscultation [] Abdomen: Bowel sounds normal, soft, no tenderness, no masses, no pulsatile masses. [] Skin: Warm, dry, no erythema, no rash. [] Back: No tenderness, no CVA tenderness. [] Extremities: No tenderness, no cyanosis, no clubbing, ROM intact, no edema. [] Neurologic: Alert and oriented X 3, normal motor function, normal sensory function, no focal deficits noted. [] Psychologic: Affect normal, judgement normal, mood normal. [] Current Patient Data: Labs: Laboratory Tests Test 06/10/20 03:47 06/10/20 03:57 06/10/20 04:28 Urine Collection Type Unknown Urine Color Yellow Urine Clarity Cloudy Urine pH 6.0 (<5.0-8.0) Urine Specific [place] >=1.030 (1.000-1.030) Urine Protein Negative mg/dL (NEG-TRACE) Urine Glucose (UA) Negative mg/dL (NEG) Urine Ketones (Stick) Trace mg/dL (NEG) Urine Blood Negative (NEG) Urine Nitrite Negative (NEG) Urine Bilirubin Negative (NEG) Urine Urobilinogen Dipstick 2.0 mg/dL (0.2 mg/dL) Urine Leukocyte Esterase Moderate (NEG) Urine RBC 0 /HPF (0-2) Urine WBC 11-20 /HPF (0-4) Urine Squamous Epithelial Cells Many /LPF Urine Bacteria Moderate /HPF (0-FEW) Urine Mucus Marked /LPF Urine Yeast Present /HPF POC Urine HCG, Qualitative Hcg negative (Negative) White Blood Count 9.2 x10^3/uL (4.0-11.0) Red Blood Count 4.03 x10^6/uL (3.50-5.40) Hemoglobin 7.5 g/dL (12.0-15.5) L Hematocrit 25.1 % (36.0-47.0) L Mean Corpuscular Volume 62 fL (79-100) L Mean Corpuscular Hemoglobin 19 pg (25-35) L Mean Corpuscular Hemoglobin Concent 30 g/dL (31-37) L Red Cell Distribution Width 18.0 % (11.5-14.5) H Platelet Count 365 x10^3/uL (140-400) Neutrophils (%) (Auto) 66 % (31-73) Lymphocytes (%) (Auto) 24 % (24-48) Monocytes (%) (Auto) 8 % (0-9) Eosinophils (%) (Auto) 2 % (0-3) Basophils (%) (Auto) 1 % (0-3) Neutrophils # (Auto) 6.0 x10^3/uL (1.8-7.7) Lymphocytes # (Auto) 2.2 x10^3/uL (1.0-4.8) Monocytes # (Auto) 0.7 x10^3/uL (0.0-1.1) Eosinophils # (Auto) 0.2 x10^3/uL (0.0-0.7) Basophils # (Auto) 0.1 x10^3/uL (0.0-0.2) Platelet Estimate Pending Sodium Level 140 mmol/L (136-145) Potassium Level 3.4 mmol/L (3.5-5.1) L Chloride Level 104 mmol/L (98-107) Carbon Dioxide Level 26 mmol/L (21-32) Anion Gap 10 (6-14) Blood Urea Nitrogen 9 mg/dL (7-20) Creatinine 0.9 mg/dL (0.6-1.0) Estimated GFR (Cockcroft-Gault) 90.2 BUN/Creatinine Ratio 10 (6-20) Glucose Level 97 mg/dL (70-99) Calcium Level 8.8 mg/dL (8.5-10.1) Total Bilirubin Pending Aspartate Amino Transferase (AST) Pending Alanine Aminotransferase (ALT) Pending Alkaline Phosphatase Pending Total Protein Pending Albumin Pending Albumin/Globulin Ratio Pending Laboratory Tests 06/10/20 04:28 Laboratory Tests 06/10/20 04:28 Vital Signs: Vital Signs Date Time Temp Pulse Resp B/P (MAP) Pulse Ox O2 Delivery O2 Flow Rate FiO2 06/10/20 03:42 98.6 90 16 125/76 (92) 99 Room Air 98.6 EKG: EKG: [] Radiology/Procedures: Radiology/Procedures: [] Course & Med Decision Making: Course & Med Decision Making Pertinent Labs and Imaging studies reviewed. (See chart for details) [] Patient evaluated for chief complaint. Work-up consisted of laboratory analysis. Results reviewed and discussed with patient. Patient's hemoglobin 7.5 review of previous levels appears to be baseline. Patient's urine consistent with urinary tract infection. Patient will be discharged home on Zof ran and Macrobid. Patient given tablet of Zofran in the emergency department no episodes of emesis tolerated p.o. Dragon Disclaimer: Dragon Disclaimer: This electronic medical record was generated, in whole or in part, using a voice recognition dictation system. Departure Departure Impression: Primary Impression: Urinary tract infection Disposition: HOME, SELF-CARE Condition: STABLE Referrals: NO PCP (PCP) Patient Instructions: Urinary Tract Infection Scripts Nitrofurantoin Monohyd/M-Cryst (MACROBID 100 MG CAPSULE) 100 Mg Capsule 1 CAP PO BID for 7 Days, #14 CAP 0 Refills Prov: NUBIA CATALAN DO 06/10/20 Ondansetron Hcl (ZOFRAN) 4 Mg Tablet 1 TAB PO Q6HRS, #20 TAB Prov: NUBIA CATALAN DO 06/10/20 Justicifation of Admission Dx: Justifications for Admission: Justification of Admission Dx: N/A NUBIA CATALAN DO Jun 10, 2020 04:54
[2020-06-10 05:09] LABS: PLT ESTIMATE ADEQUATE (ADEQUATE)
[2020-06-10 05:10] LABS: ANISOCYTOSIS SLIGHT; HYPOCHROMIA MARKED; MICROCYTOSIS MARKED; OVALOCYTES FEW
[2020-06-10 06:13] VITALS: BP 129/79
== END 2020-06-10 06:20 | disposition home or self-care (01) ==
LOC: ER 03:31
DX: N39.0 Urinary tract infection, site not specified (principal); R11.2 Nausea with vomiting, unspecified; R35.0 Frequency of micturition; F17.200 Nicotine dependence, unspecified, uncomplicated; Z87.442 Personal history of urinary calculi; Z98.51 Tubal ligation status; Z88.1 Allergy status to other antibiotic agents
CPT/HCPCS: 36415; 80053; 81001; 81025; 85025; 87086; 99283